=== PATIENT | male | born 1950 | race Caucasian/White ===

== ENCOUNTER 2021-06-13 12:35 | Inpatient (IN) | payer OTHER ==
[~2021-06-13] VITALS: Ht 177.8 cm; Wt 125.0 kg
[2021-06-13] VITALS (10 sets, daily range): BP systolic 105–176; BP diastolic 42–100
--- NOTE | 2021-06-13 12:55 | RAD ---
EXAM: Head CT without contrast. HISTORY: Left facial weakness. Report thalamic hemorrhage. TECHNIQUE: Computed tomographic images of the head were obtained without contrast. *One or more of the following individualized dose reduction techniques were utilized for this examina tion: 1. Automated exposure control. 2. Adjustment of the mA and/or kV according to patient size. 3. Use of iterative reconstruction technique. COMPARISON: None. FINDINGS: There is a 1.5 cm focus of hyperdensity within the right thalamus and adjacent white matter , the appearance of which favors an acute intraparenchymal hemorrhage. There is suspected minimal nik rounding edema. There is no mass effect or midline shift. There is no hydrocephalus. The abdul-white m atter differentiation pattern is intact. The orbits are unremarkable. There is mild paranasal sinus b ecause of thickening. The mastoid air cells are clear. There is no suspicious calvarial lesion. IMPRESSION: 1. Small focus of hyperdensity within the right thalamus and adjacent white matter, the appearance of which favors an acute intraparenchymal hemorrhage. 2. No additional acute intracranial finding. Findings were discussed with Dr. Eaton at 1250 hours on 06/13/2021. FOR INTERNAL CODING PURPOSES RESULT CODE: (C) Electronically signed by: Jaelyn Bravo MD (06/13/2021 12:53 PM) [id number]
[2021-06-13 13:18] LABS: BASO # 0.1 x10^3/uL (0.0-0.2); BASO % 1 % (0-3); EOS # 0.1 x10^3/uL (0.0-0.7); EOS % 1 % (0-3); HEMATOCRIT 42.7 % (39.0-53.0); HEMOGLOBIN 14.1 g/dL (13.0-17.5); LYMPH # 1.4 x10^3/uL (1.0-4.8); LYMPH % 17 % (24-48); MEAN CORPUSCULAR HEMOGLOBIN 27 pg (25-35); MEAN CORPUSCULAR HGB CONC 33 g/dL (31-37); MEAN CORPUSCULAR VOLUME 83 fL (79-100); MONO # 0.7 x10^3/uL (0.0-1.1); MONO % 9 % (0-9); NEUT # 6.2 x10^3/uL (1.8-7.7); NEUT % 73 % (31-73); PLATELET COUNT 224 x10^3/uL (140-400); RED BLOOD COUNT 5.17 x10^6/uL (4.30-5.70); RED CELL DISTRIBUTION WIDTH 15.6 % (11.5-14.5); WHITE BLOOD COUNT 8.5 x10^3/uL (4.0-11.0)
--- NOTE | 2021-06-13 13:18 | PHYS DOC ---
Past Medical History Past Surgical History: Other Additional Past Surgical Histo: unable to obtain General Adult EDM: Chief Complaint: NEURO SYMPTOMS/DEFICITS HPI: HPI: Patient is a 71 year old male with history of HTN, HLD, DM who presents via EMS from the [facility] in [place] with a hemorrhagic stroke. Witnessed onset of symptoms at 9:55 AM. Witnessed by his . He had difficulty speaking, left-sided facial droop, left sided weakness involving the leg and arm. Was taken immediately to emergency department. Was found to have a thalamic stroke. Symptoms began improving spontaneously. BP 210s/80s at outside hosp ital. Patient takes no blood thinners. He is on a daily baby aspirin. He did take 2 additional baby aspirin's this morning at the onset of symptoms. I received a call from the [place] requesting an ED to ED transfer. Given the known diagnosis and known need for ICU bed, I asked that they speak with our inpatient team for an ED to ICU transfer. The patient was then transported anyway to the ER without an accepting physician. Per EMS no blood pressure medications were given. Review of Systems: Review of Systems: Constitutional: Denies fever or chills. [] Eyes: Denies change in visual acuity. [] HENT: Denies nasal congestion or sore throat. [] Respiratory: Denies cough or shortness of breath. [] Cardiovascular: Denies chest pain or edema. [] GI: Denies abdominal pain, nausea, vomiting, bloody stools or diarrhea. [] : Denies dysuria. [] Musculoskeletal: Denies back pain or joint pain. [] Integument: Denies rash. [] Neurologic: Reports speech difficulty, left facial droop, left arm and leg weakness. Psychiatric: Denies depression or anxiety. [] Heart Score: C/O Chest Pain: No Current Medications: Current Medications Medications (Trade) Dose Ordered Sig/Yemi Start Time Stop Time Status Last Admin Dose Admin Nicardipine HCl 50 mg/Sodium Chloride 250 ml @ 25 mls/hr CONT PRN 06/13/21 12:45 06/13/21 12:59 25 MLS/HR Allergies: Allergies: Allergies Coded Allergies Type Severity Reaction Last Updated Verified No Known Drug Allergies 06/13/21 No Physical Exam: PE: Constitutional: Well developed, well nourished, no acute distress, non-toxic appearance. [] HENT: Normocephalic, atraumatic, bilateral external ears normal, oropharynx moist, no oral exudates, nose normal. [] Eyes: PERRLA, EOMI, conjunctiva normal, no discharge. [] Neck: Normal range of motion, no tenderness, supple, no stridor. [] Cardiovascular:Heart rate regular rhythm, no murmur [] Lungs & Thorax: Bilateral breath sounds clear to auscultation [] Abdomen: Bowel sounds normal, soft, no tenderness, no masses, no pulsatile masses. [] Skin: Warm, dry, no erythema, no rash. [] Back: No tenderness, no CVA tenderness. [] Extremities: No tenderness, no cyanosis, no clubbing, ROM intact, no edema. [] Neurologic: Alert and oriented to person (including age), place, time (including date, day of week, month) Follow simple commands (squeezes hands, blinks eyes) EOMI Visual noel intact Mild left-sided facial droop Left upper extremity and left lower extremity with drift but do not strike bed Right upper and lower extremity without drift Left upper extremity with mild ataxia. No ataxia in remaining extremities. No sensory deficit + Mild dysarthria No aphasia No hemineglect or inattention NIH =5 Current Patient Data: Vital Signs: Vital Signs Date Time Temp Pulse Resp B/P (MAP) Pulse Ox O2 Delivery O2 Flow Rate FiO2 06/13/21 12:54 98.5 88 16 202/92 (128) 98 Room Air 98.5 EKG: EKG: [] Radiology/Procedures: Radiology/Procedures: [] Impression: [facility] [address] [place], [place] [id number] IMAGING REPORT Signed PATIENT: VERNON BARBOUR LACCOUNT: [id number] : 1950 LOCATION: ER AGE: 71 SEX: M EXAM STATUS: PRE ER ORD. PHYSICIAN: LETY HALE MD REASON: L weak/facial droop. Reported thalamic hemorrhage from OSH. Cant confirm PROCEDURE: CT CODE STROKE HEAD WO EXAM: Head CT without contrast. HISTORY: Left facial weakness. Report thalamic hemorrhage. TECHNIQUE: Computed tomographic images of the head were obtained without contrast. *One or more of the following individualized dose reduction techniques were utilized for this examination: 1. Automated exposure control. 2. Adjustment of the mA and/or kV according to patient size. 3. Use of iterative reconstruction technique. COMPARISON: None. FINDINGS: There is a 1.5 cm focus of hyperdensity within the right thalamus and adjacent white matter, the appearance of which favors an acute intraparenchymal hemorrhage. There is suspected minimal surrounding edema. There is no mass effect or midline shift. There is no hydrocephalus. The abdul-white matter differentiation pattern is intact. The orbits are unremarkable. There is mild paranasal sinus because of thickening. The mastoid air cells are clear. There is no suspicious calvarial lesion. IMPRESSION: 1. Small focus of hyperdensity within the right thalamus and adjacent white matter, the appearance of which favors an acute intraparenchymal hemorrhage. 2. No additional acute intracranial finding. Findings were discussed with Dr. Hale at 1250 hours on 06/13/2021. FOR INTERNAL CODING PURPOSES RESULT CODE: (C) Electronically signed by: Jaelyn Huffman MD (06/13/2021 12:53 PM) [id number] DICTATED and SIGNED BY: JAELYN HUFFMAN MD DATE: 06/13/21 [id number] Course & Med Decision Making: Course & Med Decision Making Pertinent Labs and Imaging studies reviewed. (See chart for details) Patient is 71-year-old male with history of HTN, HLD, DM on daily aspirin who presents with left-sided deficits and dysarthria. LKW 9:55 AM today witnessed by . Was seen initially at the [facility] and diagnosed with a thalamic hemo rrhage. NIH on arrival is 5 Remains hypertensive, SBP 203. Nicardipine ordered. CT shows 1.5 cm R thalamic hemorrhage. Discussed with neurology, Dr. Garay, who agrees with management. Neurosurgery also consulted but is at low risk of need for NSGY intervention given location of bleed. Hold Aspirin Plan for ICU admission. [address] Disclaimer: Dragon Disclaimer: This electronic medical record was generated, in whole or in part, using a voice recognition dictation system. Departure Departure Impression: Primary Impression: Thalamic hemorrhage with stroke Additional Impression: Hypertension Disposition: 09 ADMITTED INPATIENT Admitting Physician: COREY Pickens) Condition: CRITICAL LETY HALE MD Jun 13, 2021 13:18
[2021-06-13 13:21] LABS: CALCIUM 8.6 mg/dL (8.5-10.1); CREATININE 1.6 mg/dL (0.7-1.3); GFR 42.8; POTASSIUM 4.8 mmol/L (3.5-5.1)
[2021-06-13 13:26] LABS: PROTHROMBIN TIME PATIENT 12.1 SEC (11.7-14.0)
[2021-06-13] MEDS ORDERED: oxyCODONE/APAP 5/325 1 TAB TABLET PO PRN ×2 (14:00)
[2021-06-13] MEDS ORDERED: 0.9 % SODIUM CHLORIDE 10 ML DISP.SYRIN. IV PRN (14:00)
[2021-06-13] MEDS ORDERED: CALCIUM CARBONATE 500 MG TAB.CHEW PO PRN (14:00)
[2021-06-13] MEDS ORDERED: ONDANSETRON PF 4 MG/2 ML VIAL. IVP PRN (14:00)
[2021-06-13] MEDS ORDERED: INSU100V6 SQ (16:19)
[2021-06-13] MEDS ORDERED: SIMV20TA18 PO (16:19)
[2021-06-13] MEDS ORDERED: CARB15DR3 EACHEYE (16:19)
[2021-06-13] MEDS ORDERED: LOSA100T14 PO (16:19)
[2021-06-13] MEDS ORDERED: OMEP40CA7 PO (16:19)
[2021-06-13] MEDS ORDERED: INSU100I13 SQ (16:19)
[2021-06-13] MEDS ORDERED: LEVO88TA4 PO (16:19)
[2021-06-13] MEDS ORDERED: OMEG-152 PO (16:19)
[2021-06-13] MEDS ORDERED: CHOL10004 PO (16:19)
[2021-06-13] MEDS ORDERED: CETI10TA31 PO (16:19)
[2021-06-13] MEDS ORDERED: METO-239 PO (16:19)
[2021-06-13] MEDS ORDERED: HYDR12.58 PO (16:19)
[2021-06-13] MEDS: CHOLECALCIFEROL (VITAMIN D3) 1,000 UNIT TABLET PO SCH (17:00)
[2021-06-13] MEDS: LEVOTHYROXINE 88 MCG TABLET PO SCH (17:00)
[2021-06-13] MEDS: METOPROLOL SUCC 24HR ER 25 MG TAB.ER.24H. PO SCH (17:00)
[2021-06-13] MEDS: PANTOPRAZOLE 40 MG TABLET.DR. PO SCH (17:08)
--- NOTE | 2021-06-13 17:19 | PDOC1 ---
History and Physical Date of Service: DOS: DATE: 06/13/21 TIME: 17:10 Chief Complaint: Chief Complain: neuro deficits History of Present Illness: HPI: Patient is 71-year-old white male who presented to an outside emergency room with left-sided neuro deficits. Patient reports he had just gone to the bathroom and was walking back to bed when he noticed his left leg and did not feel fully functional. He was able to get in bed and was reaching for a glass of water and noticed his left hand was tremoring notably. Shortly after developed difficulty speaking and a facial droop. Was brought to the emergency room at the [facility] was found to have a hemorrhagic thalamic stroke. Found to be notably hypertensive but no blood pressure meds given at outside hospital. When he noticed symptoms he says he did chew to aspirin. Denies any history of irregular heartbeat. Not on any home blood thinners. On presentation here symptoms were improving. By time I saw the patient there were very minimal deficits. CT head here confirmed intracranial hemorrhage. Admitted to ICU with neurology and neurosurgical consults. Past Medical/Surgical History: PMH/PSH: Hypertension, hyperlipidemia, diabetes type 2 Allergies: Allergies: Coded Allergies: No Known Drug Allergies (Unverified , 06/13/21) Family History: Family History: Hypertension Social History: Social History: Denies alcohol tobacco or drug use Current Medications: Current Medications Current Medications Nicardipine HCl 50 mg/Sodium Chloride 250 ml @ 25 mls/hr CONT PRN IV PER PROTOCOL Last administered on 06/13/21at 12:59; Start 06/13/21 at 12:45 Acetaminophen (Tylenol) 650 mg PRN Q6HRS PRN PO Headaches, Temp > 101.5'; Start 06/13/21 at 14:00 Lorazepam (Ativan) 1 mg PRN Q6HRS PRN PO ANXIETY / AGITATION; Start 06/13/21 at 14:00 Ondansetron HCl (Zofran) 4 mg PRN Q6HRS PRN IVP NAUSEA/VOMITING; Start 06/13/21 at 14:00 Calcium Carbonate/ Glycine (Tums) 500 mg PRN Q3HRS PRN PO HEARTBURN / GAS; Start 06/13/21 at 14:00 Info (Icu Electrolyte Protocol) 1 ea DAILY MC ; Start 06/14/21 at 09:00 Sodium Chloride (Normal Saline Flush) 3 ml QSHIFT PRN IV AFTER MEDS AND BLOOD DRAWS; Start 06/13/21 at 14:00 Oxycodone/ Acetaminophen (Percocet 5/325) 1 tab PRN Q4HRS PRN PO MILD PAIN, 1ST CHOICE; Start 06/13/21 at 14:00 Oxycodone/ Acetaminophen (Percocet 5/325) 2 tab PRN Q4HRS PRN PO MODERATE PAIN, SEVERE PAIN; Start 06/13/21 at 14:00 Senna/Docusate Sodium (Senna Plus) 1 tab BID PO ; Start 06/13/21 at 21:00 Vitamin D (Vitamin D3) 1,000 unit DAILY PO ; Start 06/13/21 at 17:00 Levothyroxine Sodium (Synthroid) 88 mcg DAILY06 PO ; Start 06/13/21 at 17:00 Metoprolol Succinate (Toprol Xl) 12.5 mg DAILY PO ; Start 06/13/21 at 17:00 Simvastatin (Zocor) 20 mg QHS PO ; Start 06/13/21 at 21:00 Glycerin/ Hypromellose/ Polyethylene (Artificial Tears) 1 drop QID OU ; Start 06/13/21 at 17:00 Cetirizine HCl (ZyrTEC) 10 mg HS PO ; Start 06/13/21 at 21:00 Insulin Glargine (Lantus Syringe) 70 unit DAILY SQ ; Start 06/14/21 at 09:00 Losartan Potassium (Cozaar) 100 mg DAILY PO ; Start 06/13/21 at 17:00 Pantoprazole Sodium (Protonix) 40 mg DAILYAC PO ; Start 06/13/21 at 17:30 Active Scripts Active Reported Simvastatin 20 Mg Tablet 1 Tab PO QHS Fish Oil 1,000 Mg Softgel ([place]-3/Dha/Epa/Fish Oil) 1 Each Capsule 1 Cap PO BID 30 Days Vitamin D3 (Vitamin D) 25 Mcg Tablet 50 Mcg PO DAILY 1,000 UNITS = 25 MCG Cetirizine Hcl 10 Mg Tab.chew 10 Mg PO HS Omeprazole 40 Mg Capsule.dr 1 Cap PO DAILY Metoprolol Succinate ( Xl ) (Metoprolol Succinate) 25 Mg Tab.er.24h 0.5 Tab PO DAILY Losartan Potassium 100 Mg Tablet 100 Mg PO DAILY Levothyroxine Sodium 88 Mcg Tablet 1 Tab PO DAILY Lantus Solostar (Insulin Glargine,Hum.rec.anlog) 100 Unit/1 Ml Insuln.pen 70 Unit SQ DAILY Humalog (Insulin Lispro) 100 Unit/1 Ml Vial 100 Unit SQ TID Hydrochlorothiazide Tablet (Hydrochlorothiazide) 12.5 Mg Tablet 12.5 Mg PO DAILY Refresh Optive Eye Drops (Carboxymethylcellulos/Glycerin) 15 Ml Drops 1 Drop EACHEYE QID ROS: Review of Systems Review of System Unless noted in HPI 14 point review of systems is negative Physical Exam: Vital Signs: Vital Signs Date Time Temp Pulse Resp B/P (MAP) Pulse Ox O2 Delivery O2 Flow Rate FiO2 06/13/21 16:22 Nasal Cannula 2.0 06/13/21 16:00 69 27 176/76 (109) 97 06/13/21 15:47 98.8 98.8 Physcial Exam: GEN: No apparent distress. Alert and oriented HEENT: Normal cephalic, atraumatic, external auditory canals are patent EYES: Extraocular muscles are intact, pupil are equally round and reactive to light and accommodation MUSCULOSKELETAL: Well developed , well nourished, good range of motion ENDOCRINE: No thyromegaly was palpated LYMPHATICS: No cervical chain or axillary nodes were noted HEMATOPOIETIC: No bruising NECK: Supple, no JVD, no thyromegaly was noted LUNGS: Clear to auscultation in all lung noel without rhonchi or wheezing HEART: RRR, S1, S2 present. Peripheral pulses intact, no obvious murmurs noted ABDOMEN: Soft, nontender. Positive bowel sounds, no organomegaly, normal bowel sounds EXTREMITIES: Without clubbing, cyanosis, or edema. Pedal pulses intact. 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 Normal throughout entire right side. No apparent cranial nerve deficits. PSYCHIATRIC: Normal affect, normal mood. Stable SKIN: No ulcerations or rashes, good skin turgor, no jaundice VASCULAR: Good capillary refill, neurovascular bundle appears to be intact Labs: Labs: Laboratory Tests Test 06/13/21 13:00 White Blood Count 8.5 x10^3/uL (4.0-11.0) Red Blood Count 5.17 x10^6/uL (4.30-5.70) Hemoglobin 14.1 g/dL (13.0-17.5) Hematocrit 42.7 % (39.0-53.0) Mean Corpuscular Volume 83 fL (79-100) Mean Corpuscular Hemoglobin 27 pg (25-35) Mean Corpuscular Hemoglobin Concent 33 g/dL (31-37) Red Cell Distribution Width 15.6 % (11.5-14.5) Platelet Count 224 x10^3/uL (140-400) Neutrophils (%) (Auto) 73 % (31-73) Lymphocytes (%) (Auto) 17 % (24-48) Monocytes (%) (Auto) 9 % (0-9) Eosinophils (%) (Auto) 1 % (0-3) Basophils (%) (Auto) 1 % (0-3) Neutrophils # (Auto) 6.2 x10^3/uL (1.8-7.7) Lymphocytes # (Auto) 1.4 x10^3/uL (1.0-4.8) Monocytes # (Auto) 0.7 x10^3/uL (0.0-1.1) Eosinophils # (Auto) 0.1 x10^3/uL (0.0-0.7) Basophils # (Auto) 0.1 x10^3/uL (0.0-0.2) Prothrombin Time 12.1 SEC (11.7-14.0) Prothromb Time International Ratio 0.9 (0.8-1.1) Activated Partial Thromboplast Time 24 SEC (24-38) Sodium Level 138 mmol/L (136-145) Potassium Level 4.8 mmol/L (3.5-5.1) Chloride Level 102 mmol/L (98-107) Carbon Dioxide Level 26 mmol/L (21-32) Anion Gap 10 (6-14) Blood Urea Nitrogen 29 mg/dL (8-26) Creatinine 1.6 mg/dL (0.7-1.3) Estimated GFR (Cockcroft-Gault) 42.8 Glucose Level 172 mg/dL (70-99) Calcium Level 8.6 mg/dL (8.5-10.1) Troponin I High Sensitivity 31 ng/L (4-75) Laboratory Tests Test 06/13/21 13:00 White Blood Count 8.5 x10^3/uL (4.0-11.0) Red Blood Count 5.17 x10^6/uL (4.30-5.70) Hemoglobin 14.1 g/dL (13.0-17.5) Hematocrit 42.7 % (39.0-53.0) Mean Corpuscular Volume 83 fL (79-100) Mean Corpuscular Hemoglobin 27 pg (25-35) Mean Corpuscular Hemoglobin Concent 33 g/dL (31-37) Red Cell Distribution Width 15.6 % (11.5-14.5) Platelet Count 224 x10^3/uL (140-400) Neutrophils (%) (Auto) 73 % (31-73) Lymphocytes (%) (Auto) 17 % (24-48) Monocytes (%) (Auto) 9 % (0-9) Eosinophils (%) (Auto) 1 % (0-3) Basophils (%) (Auto) 1 % (0-3) Neutrophils # (Auto) 6.2 x10^3/uL (1.8-7.7) Lymphocytes # (Auto) 1.4 x10^3/uL (1.0-4.8) Monocytes # (Auto) 0.7 x10^3/uL (0.0-1.1) Eosinophils # (Auto) 0.1 x10^3/uL (0.0-0.7) Basophils # (Auto) 0.1 x10^3/uL (0.0-0.2) Prothrombin Time 12.1 SEC (11.7-14.0) Prothromb Time International Ratio 0.9 (0.8-1.1) Activated Partial Thromboplast Time 24 SEC (24-38) Sodium Level 138 mmol/L (136-145) Potassium Level 4.8 mmol/L (3.5-5.1) Chloride Level 102 mmol/L (98-107) Carbon Dioxide Level 26 mmol/L (21-32) Anion Gap 10 (6-14) Blood Urea Nitrogen 29 mg/dL (8-26) Creatinine 1.6 mg/dL (0.7-1.3) Estimated GFR (Cockcroft-Gault) 42.8 Glucose Level 172 mg/dL (70-99) Calcium Level 8.6 mg/dL (8.5-10.1) Troponin I High Sensitivity 31 ng/L (4-75) Assessment/Plan Assessment/Plan Thalamic hemorrhagic stroke, hypertensive urgency. History hypertension hyperlipidemia type 2 diabetes -Patient presents today with neurological deficits. Hemorrhagic stroke on outside imaging. Confirmed here. -Notably hypertensive at outside hospital no meds given. Started on Cardene drip here with good improvement blood pressure -Continue blood pressure control overnight. Home meds restarted. Wean Cardene drip as needed. -Consult to neurology and neurosurgery -May need MRI brain await neurological consult -We will go ahead and order echo with bubble study -Home meds resumed as indicated -N.p.o. for now. If deemed safe can go ahead with diabetic diet -DVT prophylaxis 55 minutes critical care time Justifications for Admission Other Justification KING HEDRICK MD Jun 13, 2021 17:19
[2021-06-13] MEDS: ACETAMINOPHEN 325 MG TABLET. PO PRN ×2 (17:22→22:29)
[2021-06-13] MEDS: LOSARTAN POTASSIUM 50 MG TABLET. PO SCH (17:22)
[2021-06-13] MEDS: POLYVINYL ALCOHOL 1.4% OPHTH SOLUTION 15ML BOTTLE. OU SCH ×2 (17:22→20:45)
--- NOTE | 2021-06-13 19:49 | EKG ---
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
--- NOTE | 2021-06-13 20:03 | PDOC2 ---
CONSULT Date of Consult Date of Consult Neurology Consultation DATE: 06/13/21 TIME: 19:49 Reason for Consult Reason for Consult: Right thalamic hemorrhage Referring Physician Referring Physician: Dr. Lucio Atwood History of Present Illness Reason for Visit: Carlos Pratt is a pleasant 71-year-old man who developed neurologic symptoms this morning at 9:50 AM. He was turning to get out of the bathroom when suddenly his left side became weak. He started to fall but he was able to catch himself. The bed was nearby so he is able to get into his bed. He developed difficulty with slurred speech and left facial drooping. He was taken to the emergency room at [facility] and was found to have thalamic hemorrhage. By the time he arrived at [facility] emergency room some of his symptoms were improving. His blood pressure was quite elevated and a Cardene drip was started in the emergency room and he was transferred to the intensive care unit. He does not complain of any headache. He feels his speech is much better. He is not complaining of any numbness. He has been able to talk, chew and swallow. He has not had shortness of breath. He denies any palpitations. Past Medical History Cardiovascular: HTN, Hyperlipidemia Endocrine: Diabetes (Insulin-dependent) Social History No ALCOHOL: none Lives: with Family Current Problem List Problem List Problems Medical Problems: (1) Hypertension Status: Acute (2) Thalamic hemorrhage with stroke Status: Acute Current Medications Current Medications Current Medications Nicardipine HCl 50 mg/Sodium Chloride 250 ml @ 25 mls/hr CONT PRN IV PER PROTOCOL Last administered on 06/13/21at 19:46; Start 06/13/21 at 12:45 Acetaminophen (Tylenol) 650 mg PRN Q6HRS PRN PO Headaches, Temp > 101.5' Last administered on 06/13/21at 17:22; Start 06/13/21 at 14:00 Lorazepam (Ativan) 1 mg PRN Q6HRS PRN PO ANXIETY / AGITATION; Start 06/13/21 at 14:00 Ondansetron HCl (Zofran) 4 mg PRN Q6HRS PRN IVP NAUSEA/VOMITING; Start 06/13/21 at 14:00 Calcium Carbonate/ Glycine (Tums) 500 mg PRN Q3HRS PRN PO HEARTBURN / GAS; Start 06/13/21 at 14:00 Info (Icu Electrolyte Protocol) 1 ea DAILY MC ; Start 06/14/21 at 09:00 Sodium Chloride (Normal Saline Flush) 3 ml QSHIFT PRN IV AFTER MEDS AND BLOOD DRAWS; Start 06/13/21 at 14:00 Oxycodone/ Acetaminophen (Percocet 5/325) 1 tab PRN Q4HRS PRN PO MILD PAIN, 1ST CHOICE; Start 06/13/21 at 14:00 Oxycodone/ Acetaminophen (Percocet 5/325) 2 tab PRN Q4HRS PRN PO MODERATE PAIN, SEVERE PAIN; Start 06/13/21 at 14:00 Senna/Docusate Sodium (Senna Plus) 1 tab BID PO ; Start 06/13/21 at 21:00 Vitamin D (Vitamin D3) 1,000 unit DAILY PO ; Start 06/13/21 at 17:00 Levothyroxine Sodium (Synthroid) 88 mcg DAILY06 PO ; Start 06/13/21 at 17:00 Metoprolol Succinate (Toprol Xl) 12.5 mg DAILY PO ; Start 06/13/21 at 17:00 Simvastatin (Zocor) 20 mg QHS PO ; Start 06/13/21 at 21:00 Glycerin/ Hypromellose/ Polyethylene (Artificial Tears) 1 drop QID OU Last administered on 06/13/21at 17:22; Start 06/13/21 at 17:00 Cetirizine HCl (ZyrTEC) 10 mg HS PO ; Start 06/13/21 at 21:00 Insulin Glargine (Lantus Syringe) 70 unit DAILY SQ ; Start 06/14/21 at 09:00 Losartan Potassium (Cozaar) 100 mg DAILY PO Last administered on 06/13/21at 17:22; Start 06/13/21 at 17:00 Pantoprazole Sodium (Protonix) 40 mg DAILYAC PO ; Start 06/13/21 at 17:30 Active Scripts Active Reported Simvastatin 20 Mg Tablet 1 Tab PO QHS Fish Oil 1,000 Mg Softgel ([place]-3/Dha/Epa/Fish Oil) 1 Each Capsule 1 Cap PO BID 30 Days Vitamin D3 (Vitamin D) 25 Mcg Tablet 50 Mcg PO DAILY 1,000 UNITS = 25 MCG Cetirizine Hcl 10 Mg Tab.chew 10 Mg PO HS Omeprazole 40 Mg Capsule.dr 1 Cap PO DAILY Metoprolol Succinate ( Xl ) (Metoprolol Succinate) 25 Mg Tab.er.24h 0.5 Tab PO DAILY Losartan Potassium 100 Mg Tablet 100 Mg PO DAILY Levothyroxine Sodium 88 Mcg Tablet 1 Tab PO DAILY Lantus Solostar (Insulin Glargine,Hum.rec.anlog) 100 Unit/1 Ml Insuln.pen 70 Unit SQ DAILY Humalog (Insulin Lispro) 100 Unit/1 Ml Vial 100 Unit SQ TID Hydrochlorothiazide Tablet (Hydrochlorothiazide) 12.5 Mg Tablet 12.5 Mg PO DAILY Refresh Optive Eye Drops (Carboxymethylcellulos/Glycerin) 15 Ml Drops 1 Drop EACHEYE QID Allergies Allergies: Coded Allergies: No Known Drug Allergies (Unverified , 06/13/21) ROS Review of System Constitutional: Negative Eyes: Negative HENT: Negative Respiratory: Negative Cardiovascular: He has high blood pressure. GI: Negative : Negative Musculoskeletal: Negative Neurologic: He developed left leg weakness and difficulty walking. He developed numbness of his left face. He had left facial drooping. Hematologic: Negative Lymphatic: Negative Psychiatric: Negative Endocrine: He has insulin-dependent diabetes. He has hyperlipidemia. Physical Exam Physical Exam He was alert, awake and cooperative. The speech was fluent and clear. He had a good fund of recent and remote knowledge. Attention and concentration was intact. He was well-groomed and well-nourished. He was fully oriented. Examination of the cranial nerves revealed visual noel were full to confrontation. Extraocular movements were intact. The eyes were conjugate. Pursuit movements were smooth and saccadic movements were without dysmetria. The pupils were 3 millimeters and reacted to light. There was no afferent pupillary defect. Funduscopic examination did not reveal papilledema, exudate or hemorrhage. Facial sensation was intact. The muscles of mastication were powerful symmetrically. He did not have a left facial droop but did have delay of initiation of left smile. He did not have delay in eye opening or closing. Hearing was intact to finger rub. The palate arch symmetrically and the tongue was midline with full range of motion. Sternocleidomastoid and trapezius were powerful bilaterally. Muscle bulk and tone was normal. He had rebound in the left arm and leg when held in the air. There was no arm drift. The power was full and symmetric in the upper and lower extremities. Reflexes were 2/4 and symmetric in the upper and lower extremities. The toes were downgoing bilaterally. Coordination testing with finger to nose, heel to kearns, fine motor and rapid alternating movements was well performed on the right. He had impairment with oplilu-al-jzby, fine motor, rapid alternating movements and taeu-hi-wgmw on the left. The sensory examination was intact to pain, light touch, proprioception, graphesthesia, cold thermal and vibration. There was no extinction to double simultaneous stimulation. The gait was not testable due to his elevated blood pressure requiring a Cardene drip. Auscultation of the carotid arteries did not reveal a bruit. Heart rhythm was regular without a murmur. Peripheral pulses are 2/4 at the wrists and feet. There was no edema or cyanosis of the extremities. Vitals VITALS Vital Signs Date Time Temp Pulse Resp B/P (MAP) Pulse Ox O2 Delivery O2 Flow Rate FiO2 06/13/21 18:00 82 19 158/70 (99) 93 Nasal Cannula 2.0 06/13/21 15:47 98.8 98.8 Labs Labs Laboratory Tests Test 06/13/21 13:00 White Blood Count 8.5 x10^3/uL (4.0-11.0) Red Blood Count 5.17 x10^6/uL (4.30-5.70) Hemoglobin 14.1 g/dL (13.0-17.5) Hematocrit 42.7 % (39.0-53.0) Mean Corpuscular Volume 83 fL (79-100) Mean Corpuscular Hemoglobin 27 pg (25-35) Mean Corpuscular Hemoglobin Concent 33 g/dL (31-37) Red Cell Distribution Width 15.6 % (11.5-14.5) Platelet Count 224 x10^3/uL (140-400) Neutrophils (%) (Auto) 73 % (31-73) Lymphocytes (%) (Auto) 17 % (24-48) Monocytes (%) (Auto) 9 % (0-9) Eosinophils (%) (Auto) 1 % (0-3) Basophils (%) (Auto) 1 % (0-3) Neutrophils # (Auto) 6.2 x10^3/uL (1.8-7.7) Lymphocytes # (Auto) 1.4 x10^3/uL (1.0-4.8) Monocytes # (Auto) 0.7 x10^3/uL (0.0-1.1) Eosinophils # (Auto) 0.1 x10^3/uL (0.0-0.7) Basophils # (Auto) 0.1 x10^3/uL (0.0-0.2) Prothrombin Time 12.1 SEC (11.7-14.0) Prothromb Time International Ratio 0.9 (0.8-1.1) Activated Partial Thromboplast Time 24 SEC (24-38) Sodium Level 138 mmol/L (136-145) Potassium Level 4.8 mmol/L (3.5-5.1) Chloride Level 102 mmol/L (98-107) Carbon Dioxide Level 26 mmol/L (21-32) Anion Gap 10 (6-14) Blood Urea Nitrogen 29 mg/dL (8-26) Creatinine 1.6 mg/dL (0.7-1.3) Estimated GFR (Cockcroft-Gault) 42.8 Glucose Level 172 mg/dL (70-99) Calcium Level 8.6 mg/dL (8.5-10.1) Troponin I High Sensitivity 31 ng/L (4-75) Laboratory Tests Test 06/13/21 13:00 White Blood Count 8.5 x10^3/uL (4.0-11.0) Red Blood Count 5.17 x10^6/uL (4.30-5.70) Hemoglobin 14.1 g/dL (13.0-17.5) Hematocrit 42.7 % (39.0-53.0) Mean Corpuscular Volume 83 fL (79-100) Mean Corpuscular Hemoglobin 27 pg (25-35) Mean Corpuscular Hemoglobin Concent 33 g/dL (31-37) Red Cell Distribution Width 15.6 % (11.5-14.5) Platelet Count 224 x10^3/uL (140-400) Neutrophils (%) (Auto) 73 % (31-73) Lymphocytes (%) (Auto) 17 % (24-48) Monocytes (%) (Auto) 9 % (0-9) Eosinophils (%) (Auto) 1 % (0-3) Basophils (%) (Auto) 1 % (0-3) Neutrophils # (Auto) 6.2 x10^3/uL (1.8-7.7) Lymphocytes # (Auto) 1.4 x10^3/uL (1.0-4.8) Monocytes # (Auto) 0.7 x10^3/uL (0.0-1.1) Eosinophils # (Auto) 0.1 x10^3/uL (0.0-0.7) Basophils # (Auto) 0.1 x10^3/uL (0.0-0.2) Prothrombin Time 12.1 SEC (11.7-14.0) Prothromb Time International Ratio 0.9 (0.8-1.1) Activated Partial Thromboplast Time 24 SEC (24-38) Sodium Level 138 mmol/L (136-145) Potassium Level 4.8 mmol/L (3.5-5.1) Chloride Level 102 mmol/L (98-107) Carbon Dioxide Level 26 mmol/L (21-32) Anion Gap 10 (6-14) Blood Urea Nitrogen 29 mg/dL (8-26) Creatinine 1.6 mg/dL (0.7-1.3) Estimated GFR (Cockcroft-Gault) 42.8 Glucose Level 172 mg/dL (70-99) Calcium Level 8.6 mg/dL (8.5-10.1) Troponin I High Sensitivity 31 ng/L (4-75) Images Images CT head without contrast June 13, 2021 COMPARISON: None. FINDINGS: There is a 1.5 cm focus of hyperdensity within the right thalamus and adjacent white matter, the appearance of which favors an acute intraparenchymal hemorrhage. There is suspected minimal surrounding edema. There is no mass effect or midline shift. There is no hydrocephalus. The abdul-white matter differentiation pattern is intact. The orbits are unremarkable. There is mild paranasal sinus because of thickening. The mastoid air cells are clear. There is no suspicious calvarial lesion. IMPRESSION: 1. Small focus of hyperdensity within the right thalamus and adjacent white matter, the appearance of which favors an acute intraparenchymal hemorrhage. 2. No additional acute intracranial finding. Assessment/Plan Assessment/Plan Patient is a pleasant 71-year-old man who developed neurologic symptoms this morning affecting his left side. CT scan of the head did reveal a right thalamic stroke which was small. No other hemorrhages or stroke is seen. His neurologic examination does reveal some deficit with delay of initiation of left smile and ataxia of the left arm and leg. His strength and sensation is impaired. We can test his walking when his blood pressure control is better. Would like to keep the blood pressure below 150 systolic. We will follow up with a CT scan of the head on June 14, 2021 to make sure hemorrhage is stable and not increasing. This is not a surgically addressable lesion. Prognosis for recovery is favorable. Aspirin should be held for 10-14 days. Blood pressure control is of paramount importance. Lipid control is also important. High doses of fish oil can however increase the risk of bleeding. Pneumatic compression stockings have been ordered. He will need to work with all the therapies. Control of diabetes is also of high importance as this is a vascular risk factor. Weight loss will be important as well. I will be happy to reevaluate. GABI CAMPBELL MD Jun 13, 2021 20:02
[2021-06-13] MEDS: CETIRIZINE HCL 10 MG TABLET. PO SCH (20:44)
[2021-06-13] MEDS: SIMVASTATIN 20 MG TABLET PO SCH (20:44)
[2021-06-13] MEDS: SENNOSIDES/DOCUSATE 8.6/50MG TABLET. PO SCH (20:44)
[2021-06-14] VITALS (24 sets, daily range): BP systolic 108–196; BP diastolic 42–100
--- NOTE | 2021-06-14 00:30 | NUR ---
PT DOES NOT WEAR HOME CPAP AND IS NOT INTERESTED IN WEARING BIPAP IN HOSPITAL,PER RN. BIPAP NOT INITIATED, WILL CONTINUE TO MONITOR
[2021-06-14] MEDS: ACETAMINOPHEN 325 MG TABLET. PO PRN ×5 (05:28→21:16)
[2021-06-14] MEDS: LEVOTHYROXINE 88 MCG TABLET PO SCH (05:28)
[2021-06-14] MEDS: CHOLECALCIFEROL (VITAMIN D3) 1,000 UNIT TABLET PO SCH (07:41)
[2021-06-14] MEDS: SENNOSIDES/DOCUSATE 8.6/50MG TABLET. PO SCH ×2 (07:41→20:54)
[2021-06-14] MEDS: METOPROLOL SUCC 24HR ER 25 MG TAB.ER.24H. PO SCH (07:41)
[2021-06-14] MEDS: LOSARTAN POTASSIUM 50 MG TABLET. PO SCH (07:42)
[2021-06-14] MEDS: PANTOPRAZOLE 40 MG TABLET.DR. PO SCH (07:42)
[2021-06-14] MEDS: POLYVINYL ALCOHOL 1.4% OPHTH SOLUTION 15ML BOTTLE. OU SCH ×4 (07:42→20:55)
[2021-06-14] MEDS ORDERED: IV DEXTROSE 5% 250 ML BAG. IV PRN (08:15)
[2021-06-14] MEDS ORDERED: DEXTROSE 50% 25 GM / 50ML DISP.SYRIN. IV PRN (08:15)
[2021-06-14] MEDS: ELECTROLYTE (ICU) PROTOCOL. MC SCH (09:00)
[2021-06-14] MEDS: INSULIN GLARGINE SYRINGE. SQ SCH (09:00)
--- NOTE | 2021-06-14 10:38 | RAD ---
CT HEAD WITHOUT CONTRAST 06/14/2021 9:58 AM Indication: Reason: check status of hemmhorage / Comparison: CT head without contrast, yesterday Procedure: Multidetector CT imaging of the head was performed without the administration of contrast. Findings: Allowing for differences in slice selection/technique there is grossly unchanged appearance of small focus of hyperdensity in the right basal ganglia concerning for small acute parenchymal hem orrhage. No new mass effect or midline shift is seen. Ventricles and basilar cisterns have stable nor mal configuration. No new abnormal extra-axial fluid collections are identified. No acute osseous yonny nges are seen. Impression: Grossly unchanged exam with small focus of hypodensity in the right basal ganglia felt to most likely represent a small intraparenchymal hemorrhage. CT follow-up to ensure resolution is tyler mmended. If lesion fails to resolve, contrast-enhanced MRI recommended. CT DOSING PQRS STATEMENT: One or more of the following individualized dose reduction techniques were utilized for this examinat ion: 1. Automated exposure control 2. Adjustment of the mA and/or kV according to patient size 3. Use of iterative reconstruction technique Electronically signed by: Miguel Jasso MD (06/14/2021 10:35 AM) [id number]
[2021-06-14] MEDS ORDERED: hydrALAZINE 25 MG TABLET PO SCH ×2 (11:00→14:00)
[2021-06-14] MEDS ORDERED: cloNIDine TTS-1 1 PATCH PATCH.TDWK TD SCH (11:00)
--- NOTE | 2021-06-14 11:09 | PDOC ---
[employer] PROGRESS NOTE Date of Service DOS: DATE: 06/14/21 TIME: 11:07 Chief Complaint Chief Complaint Thalamic hemorrhagic stroke Hypertensive urgency Hyperlipidemia Diabetes History of Present Illness History of Present Illness 06/14/2021 Patient still in ICU Visiting with his family Chart reviewed discussed with RN Vitals/I&O Vitals/I&O: Vital Signs Date Time Temp Pulse Resp B/P (MAP) Pulse Ox O2 Delivery O2 Flow Rate FiO2 06/14/21 10:34 88 176/85 06/14/21 10:00 18 95 Room Air 06/14/21 08:00 98.5 98.5 06/14/21 06:00 2.0 I & O 06/13/21 06/13/21 06/14/21 15:00 23:00 07:00 Intake Total 100 ml 100 ml Output Total 400 ml 500 ml 350 ml Balance -400 ml -400 ml -250 ml Physical Exam General: Alert Heart: Regular rate Labs Labs: Laboratory Tests Test 06/13/21 13:00 06/13/21 20:47 06/14/21 08:02 White Blood Count 8.5 x10^3/uL (4.0-11.0) Red Blood Count 5.17 x10^6/uL (4.30-5.70) Hemoglobin 14.1 g/dL (13.0-17.5) Hematocrit 42.7 % (39.0-53.0) Mean Corpuscular Volume 83 fL (79-100) Mean Corpuscular Hemoglobin 27 pg (25-35) Mean Corpuscular Hemoglobin Concent 33 g/dL (31-37) Red Cell Distribution Width 15.6 % (11.5-14.5) Platelet Count 224 x10^3/uL (140-400) Neutrophils (%) (Auto) 73 % (31-73) Lymphocytes (%) (Auto) 17 % (24-48) Monocytes (%) (Auto) 9 % (0-9) Eosinophils (%) (Auto) 1 % (0-3) Basophils (%) (Auto) 1 % (0-3) Neutrophils # (Auto) 6.2 x10^3/uL (1.8-7.7) Lymphocytes # (Auto) 1.4 x10^3/uL (1.0-4.8) Monocytes # (Auto) 0.7 x10^3/uL (0.0-1.1) Eosinophils # (Auto) 0.1 x10^3/uL (0.0-0.7) Basophils # (Auto) 0.1 x10^3/uL (0.0-0.2) Prothrombin Time 12.1 SEC (11.7-14.0) Prothromb Time International Ratio 0.9 (0.8-1.1) Activated Partial Thromboplast Time 24 SEC (24-38) Sodium Level 138 mmol/L (136-145) Potassium Level 4.8 mmol/L (3.5-5.1) Chloride Level 102 mmol/L (98-107) Carbon Dioxide Level 26 mmol/L (21-32) Anion Gap 10 (6-14) Blood Urea Nitrogen 29 mg/dL (8-26) Creatinine 1.6 mg/dL (0.7-1.3) Estimated GFR (Cockcroft-Gault) 42.8 Glucose Level 172 mg/dL (70-99) Calcium Level 8.6 mg/dL (8.5-10.1) Troponin I High Sensitivity 31 ng/L (4-75) Glucose (Fingerstick) 171 mg/dL (70-99) 255 mg/dL (70-99) Assessment and Plan Assessmemt and Plan Problems Medical Problems: (1) Hypertension Status: Acute (2) Thalamic hemorrhage with stroke Status: Acute Thalamic hemorrhagic stroke Hypertensive urgency Hyperlipidemia Diabetes Plan ICU monitoring Neurosurgery following I discussed with the nurse and pharmacy were adding in hydralazine 25 p.o. 3 times daily Home meds DVT prophylaxis Full code Trend labs PT OT Appreciate subspecialist input Comment Review of Relevant I have reviewed the following items tarsha (where applicable) has been applied. Medications: Current Medications Medications (Trade) Dose Ordered Sig/Yemi Route PRN Reason Start Time Stop Time Status Last Admin Dose Admin Nicardipine HCl 50 mg/Sodium Chloride 250 ml @ 25 mls/hr CONT PRN IV PER PROTOCOL 06/13/21 12:45 06/13/21 19:46 Acetaminophen (Tylenol) 650 mg PRN Q6HRS PRN PO Headaches, Temp > 101.5' 06/13/21 14:00 06/14/21 05:28 Senna/Docusate Sodium (Senna Plus) 1 tab BID PO 06/13/21 21:00 06/14/21 07:41 Vitamin D (Vitamin D3) 1,000 unit DAILY PO 06/13/21 17:00 06/14/21 07:41 Levothyroxine Sodium (Synthroid) 88 mcg DAILY06 PO 06/13/21 17:00 06/14/21 05:28 Metoprolol Succinate (Toprol Xl) 12.5 mg DAILY PO 06/13/21 17:00 06/14/21 07:41 Simvastatin (Zocor) 20 mg QHS PO 06/13/21 21:00 06/13/21 20:44 Glycerin/ Hypromellose/ Polyethylene (Artificial Tears) 1 drop QID OU 06/13/21 17:00 06/13/21 20:45 Cetirizine HCl (ZyrTEC) 10 mg HS PO 06/13/21 21:00 06/13/21 20:44 Insulin Glargine (Lantus Syringe) 70 unit DAILY SQ 06/14/21 09:00 06/14/21 09:00 Losartan Potassium (Cozaar) 100 mg DAILY PO 06/13/21 17:00 06/14/21 07:42 Pantoprazole Sodium (Protonix) 40 mg DAILYAC PO 06/13/21 17:30 06/14/21 07:42 Clonidine HCl (Catapres Tts-1) 1 patch WEEKLY TD 06/14/21 11:00 06/14/21 10:34 Hydralazine HCl (Apresoline) 25 mg TID PO 06/14/21 11:00 06/14/21 10:34 Justifications for Admission Other Justification ALIZE HOOD III DO Jun 14, 2021 11:09
[2021-06-14] MEDS ORDERED: hydrALAZINE 20 MG/ML VIAL. IVP PRN (11:45)
[2021-06-14] MEDS: LABETALOL HCL 100 MG TABLET. PO SCH ×2 (12:37→20:55)
[2021-06-14] MEDS: INSULIN LISPRO 300 UNITS/3 ML VIAL. SQ SCH ×4 (12:42→17:44)
--- NOTE | 2021-06-14 13:39 | PDOC ---
Provider Note Date of Service: DATE: 06/14/21 TIME: 13:37 Provider Note Patient seen and examined consulted for thalamic hemorrhage no complaints, up in chair normal neuro exam CT with small focus of hypodensity in the right basal ganglia felt to most likely represent a small intraparenchymal hemorrhage, unchanged on f/u CT neurology following BP control D/W RN Justifications for Admission Other Justification RACHEL MEDEIROS MD Jun 14, 2021 13:39
--- NOTE | 2021-06-14 16:04 | NUR ---
SS following for discharge planning. SS reviewed pt chart and discussed with pt RN. Pt is from home with spouse and is currently on room air. Neurology and Dr. Clemens following. PO diet. PT/OT recommended home with outpatient. SS will continue to follow for discharge planning.
[2021-06-14] MEDS: ALPRAZolam 0.5 MG TABLET PO PRN ×2 (16:06→20:54)
--- NOTE | 2021-06-14 16:58 | RAD ---
EXAM: Carotid Doppler sonogram. HISTORY: Stroke. Atherosclerosis. TECHNIQUE: Boggs scale and color Doppler sonographic evaluation of the neck with spectral waveform dustin lysis was performed and static images are submitted for review. FINDINGS: There is atherosclerotic plaque involving the carotid bifurcations. The peak systolic velocity within the right common carotid artery is 136 cm/sec. The peak systolic ve locity within the right internal carotid artery is 158 cm/sec and the end diastolic velocity within t he right internal carotid artery is 19 cm/sec. The right ICA/CCA ratio is 1.3. The peak systolic velocity within the left common carotid artery is 143 cm/sec. The peak systolic elisabeth ocity within the left internal carotid artery is 116 cm/sec and the end diastolic velocity within the left internal carotid artery is 17 cm/sec. The left ICA/CCA ratio is 0.81. There is normal antegrade flow within both vertebral arteries. There are elevated peak systolic veloc ities within the external carotid arteries, measuring 317 cm/s on the right and 393 cm/s on the left. IMPRESSION: 1. Doppler findings consistent with 50-69 percent stenosis involving the right ICA and less than 50 p ercent stenosis involving the left ICA. 2. Doppler findings consistent with hemodynamically significant stenosis involving the left greater t hernandez right external carotid arteries. PQRS Compliance Statement - Stenosis calculations for CT, MR and conventional angiography are based u bobbi measurement of the distal ICA diameter in accordance with the NASCET methodology. Stenosis calcu lations for carotid ultrasound studies are derived from validated velocity criteria which are known t o correlate with the NASCET methodology. Electronically signed by: Jaelyn Bravo MD (06/14/2021 4:55 PM) [id number]
--- NOTE | 2021-06-14 17:42 | CARD ---
MR#: [id number] Date of Study: 06/14/2021 Ordering Physician: KING HEDRICK, Referring Physician: KING HEDRICK, Anali: Carlos King [facility] APPROVED REPORT EXAM: Two-dimensional and M-mode echocardiogram with Doppler and color Doppler. Other Information Quality : FairHR: 76bpm Rhythm : NSRTechnically limited study due to body habitus. INDICATION CVA/TIA Echo Enhancing Agent Agent/Amount Used: Agitated Saline 8mL RISK FACTORS Hypertension Obesity Diabetes 2D DIMENSIONS Left Atrium(2D)4.6 (1.6-4.0cm)IVSd1.4 (0.7-1.1cm) Aortic Root(2D)3.3 (2.0-3.7cm)LVDd5.5 (3.9-5.9cm) LVOT Diameter2.0 (1.8-2.4cm)PWd1.4 (0.7-1.1cm) LVDs3.1 (2.5-4.0cm)FS (%) 42.9 % SV106.1 mlLVEF(%)73.2 (>50%) Aortic Valve AoV Peak Danielito.170.2cm/sAoV VTI37.9cm AO Peak GR.11.6mmHgLVOT VTI 17.43cm AO Mean GR.8mmHg Mitral Valve MV E Mguboygi95.4cm/sMV E Peak Gr.10mmHg MV DECEL [id number] A Hswerbpt071.4cm/s MV E Mean Gr.5mmHgE/A Ratio0.7 TDI Lateral E' P. V7.14cm/sMedial E' P. V7.08cm/s E/Lateral E'12.8E/Medial E'12.9 Tricuspid Valve TR P. [id number]/sTR Peak Gr.29mmHg LEFT VENTRICLE The left ventricle is normal size. There is moderate concentric left ventricular hypertrophy. The lef t ventricular systolic function is normal. The ejection fraction is estimated at 55-60%. There is nor mal LV segmental wall motion. Transmitral Doppler flow pattern is Grade I-abnormal relaxation pattern . No left ventricle thrombus noted on this study. There is no ventricular septal defect visualized. T here is no left ventricular aneurysm. There is no mass noted in the left ventricle. RIGHT VENTRICLE The right ventricle is normal size. There is normal right ventricular wall thickness. The right ventr icular systolic function is normal. ATRIA The left atrium is mildly dilated. The right atrium size is normal. The interatrial septum is intact with no evidence for an atrial septal defect or patent foramen ovale as noted on 2-D, Doppler or sali ne contrast imaging. AORTIC VALVE The aortic valve is calcified but opens well. Doppler and Color Flow revealed no significant aortic r egurgitation. There is no significant aortic valvular stenosis. Calculated aortic valve area is 1.4 c m2 with maximum pressure gradient of 12 mmHg and mean pressure gradient of 7 mmHg. There is no aortic valvular vegetation. MITRAL VALVE The mitral valve is normal in structure and function. There is no evidence of mitral valve prolapse. There is no mitral valve stenosis. Doppler and Color Flow revealed no mitral valve regurgitation note d. TRICUSPID VALVE The tricuspid valve is normal in structure and function. Doppler and Color Flow revealed trace tricus pid regurgitation. The PA pressure was estimated at 37 mmHg. There is no tricuspid valve prolapse or vegetation. There is no tricuspid valve stenosis. PULMONIC VALVE The pulmonic valve is not well seen. Doppler and Color Flow revealed no pulmonic valvular regurgitati on. There is no pulmonic valvular stenosis. GREAT VESSELS The aortic root is normal in size. The ascending aorta is not well seen. The pulmonary artery is norm al. The IVC is not well seen. Difficult subcostal imaging. PERICARDIAL EFFUSION There is no pleural effusion. There is no evidence of significant pericardial effusion. Critical Notification Critical Value: No <Conclusion> Technically very difficult study. The left ventricular systolic function is normal. The ejection fraction is estimated at 55-60%. There is normal LV segmental wall motion. Transmitral Doppler flow pattern is Grade I-abnormal relaxation pattern. Trace tricuspid regurgitation. The PA pressure was estimated at 37 mmHg. There is no evidence of significant pericardial effusion. Signed by : Rainer Britton, Electronically Approved : 06/14/2021 17:42:29
--- NOTE | 2021-06-14 19:50 | PDOC ---
PROGRESS NOTES Date of Service DATE: 06/14/21 TIME: 19:37 Assessment Problems Medical Problems: (1) Hypertension-the control of the blood pressure is much better. He has been off Cardene drip for several hours. Oral medications have been titrated. Status: Acute (2) Thalamic hemorrhage with stroke-I am relieved that the follow-up CT scan of the head did not reveal any increased size of the intracranial hemorrhage. Neurologically his only deficit is delay of initiation of left smile, ataxia of left arm and leg and weakness of left hip flexion. He is also unstable with gait but seems to do better if he is using a walker. His symptoms are no worse than yesterday. Status: Acute Plan He will continue to work with all of the therapies. Blood pressure management will be of paramount importance. We discussed the importance of controlling his diabetes. Last hemoglobin A1c was 8.3 on June 07, 2021. The whole goal is to reduce risk factors for future events. To this end he will need to exercise, carefully monitor his diet, lose weight, control his blood pressure and control cholesterol as well as triglycerides. At this time I recommend with holding the fish oil as it may potentially increase the risk of bleeding. The triglycerides would be better controlled by controlling the diabetes. He will likely be able to do outpatient rehabilitation as he appears safe to walk with a walker. His current statin is doing a good job as I the fasting lipid profile performed at the [facility] June 07, 2021. The LDL cholesterol was 62. He may be dismissed once the blood pressure is controlled with oral medications. Subjective I am feeling okay. I am not any worse. I do not have a headache and I am not in pain. The therapist that I could do outpatient rehabilitation. Objective Vital Signs Date Time Temp Pulse Resp B/P (MAP) Pulse Ox O2 Delivery O2 Flow Rate FiO2 06/14/21 19:00 76 20 137/58 97 Room Air 06/14/21 17:00 98.2 98.2 06/14/21 06:00 2.0 Intake and Output 06/14/21 07:00 Intake Total 200 ml Output Total 1250 ml Balance -1050 ml Intake Oral 200 ml Output Urine Total 1250 ml Carotid Doppler June 14, 2021 FINDINGS: There is atherosclerotic plaque involving the carotid bifurcations. The peak systolic velocity within the right common carotid artery is 136 cm/sec. The peak systolic velocity within the right internal carotid artery is 158 cm/sec and the end diastolic velocity within the right internal carotid artery is 19 cm/sec. The right ICA/CCA ratio is 1.3. The peak systolic velocity within the left common carotid artery is 143 cm/sec. The peak systolic velocity within the left internal carotid artery is 116 cm/sec and the end diastolic velocity within the left internal carotid artery is 17 cm/sec. The left ICA/CCA ratio is 0.81. There is normal antegrade flow within both vertebral arteries. There are elevated peak systolic velocities within the external carotid arteries, measuring 317 cm/s on the right and 393 cm/s on the left. IMPRESSION: 1. Doppler findings consistent with 50-69 percent stenosis involving the right ICA and less than 50 percent stenosis involving the left ICA. 2. Doppler findings consistent with hemodynamically significant stenosis involving the left greater than right external carotid arteries. CT head without contrast June 14, 2021 Comparison: CT head without contrast, yesterday Procedure: Multidetector CT imaging of the head was performed without the administration of contrast. Findings: Allowing for differences in slice selection/technique there is grossly unchanged appearance of small focus of hyperdensity in the right basal ganglia concerning for small acute parenchymal hemorrhage. No new mass effect or midline shift is seen. Ventricles and basilar cisterns have stable normal configuration. No new abnormal extra-axial fluid collections are identified. No acute osseous changes are seen. Impression: Grossly unchanged exam with small focus of hypodensity in the right basal ganglia felt to most likely represent a small intraparenchymal hemorrhage. CT follow-up to ensure resolution is recommended. If lesion fails to resolve, contrast-enhanced MRI recommended.. Laboratory was reviewed from [facility] from June 07, 2021. The patient brought in copies of the lab work. CBC revealed a normal white blood cell count, hemoglobin, hematocrit and platelet count. Chemistries were performed June 07, 2021. This revealed a sodium low at 135 and potassium elevated to 5.2. Chloride and CO2 were normal. BUN was elevated to 37 and creatinine was elevated to 1.98. GFR calculated at 33.5. Calcium, total protein and albumin were normal. Liver enzymes were not elevated. Uric acid was elevated to 8. Vitamin D level was low at 28.8 TSH was normal. Hemoglobin A1c was 8.3. Fasting lipid profile was obtained June 07, 2021. This revealed a total cholesterol 127, triglycerides elevated at 202, HDL was diminished at 25 and LDL was 62. PHYSICAL EXAM He was alert, awake and cooperative. Speech was fluent and clear. Attention and concentration was intact. He appeared well groomed and well nourished. Examination of the cranial nerves revealed visual noel were full to confrontation. Extraocular movements were intact. The eyes were conjugate. Pursuit movements were smooth and saccadic eye movements were without dysmetria. Pupils were 3 mm. Facial sensation was intact. Muscles of mastication were powerful symmetrically. He had delay of initiation of left smile. Hearing was intact to finger rub. The palate arched symmetrically and the tongue was midline with full motion. Muscle bulk and tone was normal. There was no drift. He did have rebound in the left arm and left leg. Power was full in the upper extremities bilaterally. He was weak with left hip flexion but otherwise was powerful in his left leg. Coordination testing with [id number], [id number], fine motor and rapid alternating movements was impaired on the left but normal on the right. Sensory exam was intact to light touch and sharp. He was able to transfer independently from his bed to a reclining chair by holding onto the furniture. He did have standby assistance. It was not an easy transfer for him. Review of Relevant I have reviewed the following items tarsha (where applicable) has been applied. Labs Laboratory Tests Test 06/13/21 13:00 06/13/21 20:47 06/14/21 08:02 06/14/21 11:09 White Blood Count 8.5 x10^3/uL (4.0-11.0) Red Blood Count 5.17 x10^6/uL (4.30-5.70) Hemoglobin 14.1 g/dL (13.0-17.5) Hematocrit 42.7 % (39.0-53.0) Mean Corpuscular Volume 83 fL (79-100) Mean Corpuscular Hemoglobin 27 pg (25-35) Mean Corpuscular Hemoglobin Concent 33 g/dL (31-37) Red Cell Distribution Width 15.6 % (11.5-14.5) Platelet Count 224 x10^3/uL (140-400) Neutrophils (%) (Auto) 73 % (31-73) Lymphocytes (%) (Auto) 17 % (24-48) Monocytes (%) (Auto) 9 % (0-9) Eosinophils (%) (Auto) 1 % (0-3) Basophils (%) (Auto) 1 % (0-3) Neutrophils # (Auto) 6.2 x10^3/uL (1.8-7.7) Lymphocytes # (Auto) 1.4 x10^3/uL (1.0-4.8) Monocytes # (Auto) 0.7 x10^3/uL (0.0-1.1) Eosinophils # (Auto) 0.1 x10^3/uL (0.0-0.7) Basophils # (Auto) 0.1 x10^3/uL (0.0-0.2) Prothrombin Time 12.1 SEC (11.7-14.0) Prothromb Time International Ratio 0.9 (0.8-1.1) Activated Partial Thromboplast Time 24 SEC (24-38) Sodium Level 138 mmol/L (136-145) Potassium Level 4.8 mmol/L (3.5-5.1) Chloride Level 102 mmol/L (98-107) Carbon Dioxide Level 26 mmol/L (21-32) Anion Gap 10 (6-14) Blood Urea Nitrogen 29 mg/dL (8-26) Creatinine 1.6 mg/dL (0.7-1.3) Estimated GFR (Cockcroft-Gault) 42.8 Glucose Level 172 mg/dL (70-99) Calcium Level 8.6 mg/dL (8.5-10.1) Troponin I High Sensitivity 31 ng/L (4-75) Glucose (Fingerstick) 171 mg/dL (70-99) 255 mg/dL (70-99) 291 mg/dL (70-99) Test 06/14/21 17:41 Glucose (Fingerstick) 213 mg/dL (70-99) Laboratory Tests Test 06/13/21 20:47 06/14/21 08:02 06/14/21 11:09 06/14/21 17:41 Glucose (Fingerstick) 171 mg/dL (70-99) 255 mg/dL (70-99) 291 mg/dL (70-99) 213 mg/dL (70-99) Medications Current Medications Nicardipine HCl 50 mg/Sodium Chloride 250 ml @ 25 mls/hr CONT PRN IV PER PROTOCOL Last administered on 06/13/21at 19:46; Start 06/13/21 at 12:45 Acetaminophen (Tylenol) 650 mg PRN Q6HRS PRN PO Headaches, Temp > 101.5' Last administered on 06/14/21at 18:05; Start 06/13/21 at 14:00 Lorazepam (Ativan) 1 mg PRN Q6HRS PRN PO ANXIETY / AGITATION; Start 06/13/21 at 14:00 Ondansetron HCl (Zofran) 4 mg PRN Q6HRS PRN IVP NAUSEA/VOMITING; Start 06/13/21 at 14:00 Calcium Carbonate/ Glycine (Tums) 500 mg PRN Q3HRS PRN PO HEARTBURN / GAS; Start 06/13/21 at 14:00 Info (Icu Electrolyte Protocol) 1 ea DAILY MC ; Start 06/14/21 at 09:00 Sodium Chloride (Normal Saline Flush) 3 ml QSHIFT PRN IV AFTER MEDS AND BLOOD DRAWS; Start 06/13/21 at 14:00 Oxycodone/ Acetaminophen (Percocet 5/325) 1 tab PRN Q4HRS PRN PO MILD PAIN, 1ST CHOICE; Start 06/13/21 at 14:00 Oxycodone/ Acetaminophen (Percocet 5/325) 2 tab PRN Q4HRS PRN PO MODERATE PAIN, SEVERE PAIN; Start 06/13/21 at 14:00 Senna/Docusate Sodium (Senna Plus) 1 tab BID PO Last administered on 06/14/21at 07:41; Start 06/13/21 at 21:00 Vitamin D (Vitamin D3) 1,000 unit DAILY PO Last administered on 06/14/21at 07:41; Start 06/13/21 at 17:00 Levothyroxine Sodium (Synthroid) 88 mcg DAILY06 PO Last administered on 06/14/21at 05:28; Start 06/13/21 at 17:00 Metoprolol Succinate (Toprol Xl) 12.5 mg DAILY PO Last administered on 06/14/21at 07:41; Start 06/13/21 at 17:00; Stop 06/14/21 at 11:43; Status DC Simvastatin (Zocor) 20 mg QHS PO Last administered on 06/13/21at 20:44; Start 06/13/21 at 21:00 Glycerin/ Hypromellose/ Polyethylene (Artificial Tears) 1 drop QID OU Last administered on 06/14/21at 17:44; Start 06/13/21 at 17:00 Cetirizine HCl (ZyrTEC) 10 mg HS PO Last administered on 06/13/21at 20:44; Start 06/13/21 at 21:00 Insulin Glargine (Lantus Syringe) 70 unit DAILY SQ Last administered on 06/14/21at 09:00; Start 06/14/21 at 09:00 Losartan Potassium (Cozaar) 100 mg DAILY PO Last administered on 06/14/21at 07:42; Start 06/13/21 at 17:00 Pantoprazole Sodium (Protonix) 40 mg DAILYAC PO Last administered on 06/14/21at 07:42; Start 06/13/21 at 17:30 Insulin Human Lispro (HumaLOG) 20 units TIDWMEALS SQ Last administered on 06/14/21at 17:43; Start 06/14/21 at 12:00 Insulin Human Lispro (HumaLOG) 0-7 UNITS TIDWMEALS SQ Last administered on 06/14/21at 17:44; Start 06/14/21 at 12:00 Dextrose (Dextrose 50%-Water Syringe) 12.5 gm PRN Q15MIN PRN IV SEE COMMENTS; Start 06/14/21 at 08:15 Dextrose (Iv Dextrose 5%) 250 ml PRN Q15MIN PRN IV SEE COMMENTS; Start 06/14/21 at 08:15 Clonidine HCl (Catapres Tts-1) 1 patch WEEKLY TD Last administered on 06/14/21at 10:34; Start 06/14/21 at 11:00 Hydralazine HCl (Apresoline) 25 mg TID PO Last administered on 06/14/21at 10:34; Start 06/14/21 at 11:00; Stop 06/14/21 at 11:43; Status DC Hydralazine HCl (Apresoline) 50 mg TID PO Last administered on 06/14/21at 13:52; Start 06/14/21 at 14:00; Stop 06/14/21 at 17:24; Status DC Labetalol HCl (Trandate) 100 mg BID PO Last administered on 06/14/21at 12:37; Start 06/14/21 at 12:00 Hydralazine HCl (Apresoline Inj) 10 mg PRN Q4HRS PRN IVP ELEVATED BP, SEE COMMENTS; Start 06/14/21 at 11:45 Alprazolam (Xanax) 0.5 mg PRN Q6HRS PRN PO ANXIETY / AGITATION Last administer ed on 06/14/21at 16:06; Start 06/14/21 at 16:00 Hydralazine HCl (Apresoline) 100 mg TID PO ; Start 06/14/21 at 21:00 Active Scripts Active Reported Simvastatin 20 Mg Tablet 1 Tab PO QHS Fish Oil 1,000 Mg Softgel (Mcloud-3/Dha/Epa/Fish Oil) 1 Each Capsule 1 Cap PO BID 30 Days Vitamin D3 (Vitamin D) 25 Mcg Tablet 50 Mcg PO DAILY 1,000 UNITS = 25 MCG Cetirizine Hcl 10 Mg Tab.chew 10 Mg PO HS Omeprazole 40 Mg Capsule.dr 1 Cap PO DAILY Metoprolol Succinate ( Xl ) (Metoprolol Succinate) 25 Mg Tab.er.24h 0.5 Tab PO DAILY Losartan Potassium 100 Mg Tablet 100 Mg PO DAILY Levothyroxine Sodium 88 Mcg Tablet 1 Tab PO DAILY Lantus Solostar (Insulin Glargine,Hum.rec.anlog) 100 Unit/1 Ml Insuln.pen 70 Unit SQ DAILY Humalog (Insulin Lispro) 100 Unit/1 Ml Vial 100 Unit SQ TID Hydrochlorothiazide Tablet (Hydrochlorothiazide) 12.5 Mg Tablet 12.5 Mg PO DAILY Refresh Optive Eye Drops (Carboxymethylcellulos/Glycerin) 15 Ml Drops 1 Drop EACHEYE QID Vitals/I & O Vital Sign - Last 24 Hours 06/13/21 06/13/21 06/13/21 06/13/21 20:00 20:00 21:00 22:00 Pulse 96 85 77 Resp 30 26 23 B/P (MAP) 163/56 140/80 105/50 Pulse Ox 95 95 95 O2 Delivery Nasal Cannula Nasal Cannula Nasal Cannula Nasal Cannula O2 Flow Rate 2.0 2.0 2.0 2.0 06/13/21 06/13/21 06/14/21 06/14/21 22:15 23:00 00:00 00:00 Pulse 72 74 76 Resp 25 30 27 B/P (MAP) 107/52 124/42 108/59 108/42 Pulse Ox 97 97 95 O2 Delivery Nasal Cannula Nasal Cannula Nasal Cannula O2 Flow Rate 2.0 2.0 2.0 06/14/21 06/14/21 06/14/21 06/14/21 01:00 02:00 03:00 04:00 Temp 98.4 98.4 Pulse 75 83 91 72 Resp 28 B/P (MAP) 144/61 148/81 137/51 145/57 Pulse Ox 97 95 95 96 O2 Delivery Nasal Cannula Nasal Cannula Nasal Cannula Nasal Cannula O2 Flow Rate 2.0 2.0 2.0 2.0 06/14/21 06/14/21 06/14/21 06/14/21 05:00 06:00 07:00 07:41 Pulse 71 74 57 78 Resp 15 B/P (MAP) 155/58 158/56 171/85 171/85 Pulse Ox 98 98 90 O2 Delivery Nasal Cannula Nasal Cannula Room Air O2 Flow Rate 2.0 2.0 06/14/21 06/14/21 06/14/21 06/14/21 07:42 08:00 08:00 09:00 Temp 98.5 98.5 Pulse 82 83 81 Resp 18 B/P (MAP) 171/85 196/83 174/100 Pulse Ox 94 96 O2 Delivery Room Air Room Air Room Air 06/14/21 06/14/21 06/14/21 06/14/21 10:00 10:34 11:00 12:00 Temp 98.6 98.6 Pulse 78 88 66 72 Resp 16 16 B/P (MAP) 182/72 176/85 194/77 184/66 Pulse Ox 95 96 95 O2 Delivery Room Air Room Air Room Air 06/14/21 06/14/21 06/14/21 06/14/21 12:37 13:00 13:52 14:00 Pulse 71 71 64 64 Resp 16 14 B/P (MAP) 180/87 145/66 125/55 125/55 Pulse Ox 96 97 O2 Delivery Room Air Room Air 06/14/21 06/14/21 06/14/21 06/14/21 15:00 16:00 17:00 18:00 Temp 98.2 98.2 98.2 98.2 Pulse 69 74 75 72 Resp 14 18 16 16 B/P (MAP) 180/87 158/72 151/73 128/55 Pulse Ox 97 97 97 97 O2 Delivery Room Air Room Air Room Air Room Air 06/14/21 19:00 Pulse 76 Resp 20 B/P (MAP) 137/58 Pulse Ox 97 O2 Delivery Room Air Intake and Output 06/13/21 06/13/21 06/14/21 15:00 23:00 07:00 Intake Total 100 ml 100 ml Output Total 400 ml 500 ml 350 ml Balance -400 ml -400 ml -250 ml Justicifation of Admission Dx: Justifications for Admission: Justification of Admission Dx: Yes Acute Hemorrhagic Stroke: Acute Hemorrhagic Stroke GABI CAMPBELL MD Jun 14, 2021 19:50
[2021-06-14] MEDS: CETIRIZINE HCL 10 MG TABLET. PO SCH (20:54)
[2021-06-14] MEDS: SIMVASTATIN 20 MG TABLET PO SCH (20:54)
--- NOTE | 2021-06-14 23:32 | NUR ---
note patient bp 88/40, and deeply asleep. i woke patient, he was a bit disoriented, cannot remember date of . NIH still 4. After completing NIH scale parminder is A&Ox4. neurologist called and informed. No new orders at this time
[2021-06-15] VITALS (16 sets, daily range): BP systolic 105–154; BP diastolic 46–71
[2021-06-15] MEDS: ACETAMINOPHEN 325 MG TABLET. PO PRN (03:35)
[2021-06-15] MEDS: LEVOTHYROXINE 88 MCG TABLET PO SCH (05:49)
[2021-06-15 07:41] LABS: CHOLESTEROL/HDL RATIO 3.7
[2021-06-15] MEDS: PANTOPRAZOLE 40 MG TABLET.DR. PO SCH (08:30)
[2021-06-15] MEDS: LABETALOL HCL 100 MG TABLET. PO SCH (08:44)
[2021-06-15] MEDS: LOSARTAN POTASSIUM 50 MG TABLET. PO SCH (08:45)
[2021-06-15] MEDS: CHOLECALCIFEROL (VITAMIN D3) 1,000 UNIT TABLET PO SCH (08:45)
[2021-06-15] MEDS: SENNOSIDES/DOCUSATE 8.6/50MG TABLET. PO SCH (08:45)
[2021-06-15] MEDS: INSULIN LISPRO 300 UNITS/3 ML VIAL. SQ SCH ×4 (08:46→12:38)
[2021-06-15] MEDS: ELECTROLYTE (ICU) PROTOCOL. MC SCH (08:47)
[2021-06-15] MEDS: POLYVINYL ALCOHOL 1.4% OPHTH SOLUTION 15ML BOTTLE. OU SCH ×2 (08:48→12:39)
--- NOTE | 2021-06-15 08:51 | PDOC ---
[employer] PROGRESS NOTE Date of Service DOS: DATE: 06/15/21 TIME: 08:50 Chief Complaint Chief Complaint Thalamic hemorrhagic stroke Hypertensive urgency Hyperlipidemia Diabetes History of Present Illness History of Present Illness 06/15/2021 Patient seen and examined in the ICU He was snoring up in the chair He was easy to awake Pleasant but weak Discussed with RN Chart review 06/14/2021 Patient still in ICU Visiting with his family Chart reviewed discussed with RN Vitals/I&O Vitals/I&O: Vital Signs Date Time Temp Pulse Resp B/P (MAP) Pulse Ox O2 Delivery O2 Flow Rate FiO2 06/15/21 08:45 76 135/61 06/15/21 06:00 26 99 Room Air 06/15/21 04:00 98.5 98.5 I & O 06/14/21 06/14/21 06/15/21 15:00 23:00 07:00 Intake Total 500 ml 900 ml Output Total 1001 ml 350 ml 300 ml Balance -501 ml 550 ml -300 ml Physical Exam General: Alert, No acute distress Heart: Regular rate Lungs: Clear Abdomen: Normal bowel sounds Extremities: No clubbing Skin: No rashes Labs Labs: Laboratory Tests Test 06/14/21 11:09 06/14/21 17:41 06/14/21 20:58 06/14/21 23:13 Glucose (Fingerstick) 291 mg/dL (70-99) 213 mg/dL (70-99) 129 mg/dL (70-99) 136 mg/dL (70-99) Test 06/15/21 07:05 06/15/21 08:27 Triglycerides Level 134 mg/dL (0-150) Cholesterol Level 119 mg/dL (0-200) LDL Cholesterol, Calculated 60 mg/dL (0-100) VLDL Cholesterol, Calculated 27 mg/dL (0-40) Non-HDL Cholesterol Calculated 87 mg/dL (0-129) HDL Cholesterol 32 mg/dL (40-60) Cholesterol/HDL Ratio 3.7 Glucose (Fingerstick) 228 mg/dL (70-99) Assessment and Plan Assessmemt and Plan Problems Medical Problems: (1) Hypertension Status: Acute (2) Thalamic hemorrhage with stroke Status: Acute Thalamic hemorrhagic stroke Hypertensive urgency Hyperlipidemia Diabetes Plan ICU monitoring Neurosurgery following and neurology Home meds Aggressive blood pressure control DVT prophylaxis Full code Trend labs PT OT Appreciate subspecialist input Comment Review of Relevant I have reviewed the following items tarsha (where applicable) has been applied. Medications: Current Medications Medications (Trade) Dose Ordered Sig/Yemi Route PRN Reason Start Time Stop Time Status Last Admin Dose Admin Insulin Glargine (Lantus Syringe) 70 unit DAILY SQ 06/14/21 09:00 06/14/21 09:00 Insulin Human Lispro (HumaLOG) 20 units TIDWMEALS SQ 06/14/21 12:00 06/15/21 08:46 Insulin Human Lispro (HumaLOG) 0-7 UNITS TIDWMEALS SQ 06/14/21 12:00 06/15/21 08:47 Clonidine HCl (Catapres Tts-1) 1 patch WEEKLY TD 06/14/21 11:00 06/14/21 10:34 Hydralazine HCl (Apresoline) 25 mg TID PO 06/14/21 11:00 06/14/21 11:43 DC 06/14/21 10:34 Hydralazine HCl (Apresoline) 50 mg TID PO 06/14/21 14:00 06/14/21 17:24 DC 06/14/21 13:52 Labetalol HCl (Trandate) 100 mg BID PO 06/14/21 12:00 06/15/21 08:44 Hydralazine HCl (Apresoline Inj) 10 mg PRN Q4HRS PRN IVP ELEVATED BP, SEE COMMENTS 06/14/21 11:45 06/15/21 04:35 Alprazolam (Xanax) 0.5 mg PRN Q6HRS PRN PO ANXIETY / AGITATION 06/14/21 16:00 06/14/21 20:54 Hydralazine HCl (Apresoline) 100 mg TID PO 06/14/21 21:00 06/15/21 08:43 Justifications for Admission Other Justification ALIZE HOOD III DO Jun 15, 2021 08:51
[2021-06-15] MEDS: INSULIN GLARGINE SYRINGE. SQ SCH (09:00)
--- NOTE | 2021-06-15 15:04 | PDOC ---
PROGRESS NOTES Date of Service DATE: 06/15/21 TIME: 15:03 Subjective Subjective resting in chair denies headache BP well controlled family at bedside Objective Objective Vital Signs Date Time Temp Pulse Resp B/P (MAP) Pulse Ox O2 Delivery O2 Flow Rate FiO2 06/15/21 14:15 65 134/78 06/15/21 13:00 22 96 Room Air 06/15/21 12:00 97.9 97.9 06/14/21 06:00 2.0 Intake and Output 06/15/21 07:00 Intake Total 1400 ml Output Total 1651 ml Balance -251 ml Intake Oral 1400 ml Output Urine Total 1650 ml Stool Total 1 ml # Voids 1 Physical Exam General: Alert, Oriented X3, Cooperative, No acute distress MUSCULOSKELETAL: 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 Labs Laboratory Tests Test 06/13/21 20:47 06/14/21 08:02 06/14/21 11:09 06/14/21 17:41 Glucose (Fingerstick) 171 mg/dL (70-99) 255 mg/dL (70-99) 291 mg/dL (70-99) 213 mg/dL (70-99) Test 06/14/21 20:58 06/14/21 23:13 06/15/21 07:05 06/15/21 08:27 Glucose (Fingerstick) 129 mg/dL (70-99) 136 mg/dL (70-99) 228 mg/dL (70-99) Triglycerides Level 134 mg/dL (0-150) Cholesterol Level 119 mg/dL (0-200) LDL Cholesterol, Calculated 60 mg/dL (0-100) VLDL Cholesterol, Calculated 27 mg/dL (0-40) Non-HDL Cholesterol Calculated 87 mg/dL (0-129) HDL Cholesterol 32 mg/dL (40-60) Cholesterol/HDL Ratio 3.7 Test 06/15/21 12:00 Glucose (Fingerstick) 212 mg/dL (70-99) Laboratory Tests Test 06/14/21 17:41 06/14/21 20:58 06/14/21 23:13 06/15/21 07:05 Glucose (Fingerstick) 213 mg/dL (70-99) 129 mg/dL (70-99) 136 mg/dL (70-99) Triglycerides Level 134 mg/dL (0-150) Cholesterol Level 119 mg/dL (0-200) LDL Cholesterol, Calculated 60 mg/dL (0-100) VLDL Cholesterol, Calculated 27 mg/dL (0-40) Non-HDL Cholesterol Calculated 87 mg/dL (0-129) HDL Cholesterol 32 mg/dL (40-60) Cholesterol/HDL Ratio 3.7 Test 06/15/21 08:27 06/15/21 12:00 Glucose (Fingerstick) 228 mg/dL (70-99) 212 mg/dL (70-99) Medications Current Medications Nicardipine HCl 50 mg/Sodium Chloride 250 ml @ 25 mls/hr CONT PRN IV PER PROTOCOL Last administered on 06/13/21at 19:46; Start 06/13/21 at 12:45 Acetaminophen (Tylenol) 650 mg PRN Q6HRS PRN PO Headaches, Temp > 101.5' Last administered on 06/15/21at 03:35; Start 06/13/21 at 14:00 Lorazepam (Ativan) 1 mg PRN Q6HRS PRN PO ANXIETY / AGITATION; Start 06/13/21 at 14:00; Stop 06/15/21 at 12:21; Status DC Ondansetron HCl (Zofran) 4 mg PRN Q6HRS PRN IVP NAUSEA/VOMITING; Start 06/13/21 at 14:00 Calcium Carbonate/ Glycine (Tums) 500 mg PRN Q3HRS PRN PO HEARTBURN / GAS; Start 06/13/21 at 14:00 Info (Icu Electrolyte Protocol) 1 ea DAILY MC ; Start 06/14/21 at 09:00 Sodium Chloride (Normal Saline Flush) 3 ml QSHIFT PRN IV AFTER MEDS AND BLOOD DRAWS; Start 06/13/21 at 14:00 Oxycodone/ Acetaminophen (Percocet 5/325) 1 tab PRN Q4HRS PRN PO MILD PAIN, 1ST CHOICE; Start 06/13/21 at 14:00 Oxycodone/ Acetaminophen (Percocet 5/325) 2 tab PRN Q4HRS PRN PO MODERATE PAIN, SEVERE PAIN; Start 06/13/21 at 14:00 Senna/Docusate Sodium (Senna Plus) 1 tab BID PO Last administered on 06/15/21 08:45; Start 06/13/21 at 21:00 Vitamin D (Vitamin D3) 1,000 unit DAILY PO Last administered on 06/15/21 08:45; Start 06/13/21 at 17:00 Levothyroxine Sodium (Synthroid) 88 mcg DAILY06 PO Last administered on 06/15/21at 05:49; Start 06/13/21 at 17:00 Metoprolol Succinate (Toprol Xl) 12.5 mg DAILY PO Last administered on 2at 07:41; Start 06/13/21 at 17:00; Stop 06/14/21 at 11:43; Status DC Simvastatin (Zocor) 20 mg QHS PO Last administered on 06/14/21at 20:54; Start 06/13/21 at 21:00 Glycerin/ Hypromellose/ Polyethylene (Artificial Tears) 1 drop QID OU Last administered on 06/14/21 20:55; Start 06/13/21 at 17:00 Cetirizine HCl (ZyrTEC) 10 mg HS PO Last administered on 06/14/21at 20:54; Start 06/13/21 at 21:00 Insulin Glargine (Lantus Syringe) 70 unit DAILY SQ Last administered on 06/15/21at 09:00; Start 06/14/21 at 09:00 Losartan Potassium (Cozaar) 100 mg DAILY PO Last administered on 06/15/21at 08:45; Start 06/13/21 at 17:00 Pantoprazole Sodium (Protonix) 40 mg DAILYAC PO Last administered on 06/15/21 08:30; Start 06/13/21 at 17:30 Insulin Human Lispro (HumaLOG) 20 units TIDWMEALS SQ Last administered on 06/15/21 12:37; Start 06/14/21 at 12:00 Insulin Human Lispro (HumaLOG) 0-7 UNITS TIDWMEALS SQ Last administered on 06/15/21at 12:38; Start 06/14/21 at 12:00 Dextrose (Dextrose 50%-Water Syringe) 12.5 gm PRN Q15MIN PRN IV SEE COMMENTS; Start 06/14/21 at 08:15 Dextrose (Iv Dextrose 5%) 250 ml PRN Q15MIN PRN IV SEE COMMENTS; Start 06/14/21 at 08:15 Clonidine HCl (Catapres Tts-1) 1 patch WEEKLY TD Last administered on 06/14/21at 10:34; Start 06/14/21 at 11:00 Hydralazine HCl (Apresoline) 25 mg TID PO Last administered on 06/14/21at 10:34; Start 06/14/21 at 11:00; Stop 06/14/21 at 11:43; Status DC Hydralazine HCl (Apresoline) 50 mg TID PO Last administered on 06/14/21at 13:52; Start 06/14/21 at 14:00; Stop 06/14/21 at 17:24; Status DC Labetalol HCl (Trandate) 100 mg BID PO Last administered on 06/15/21at 08:44; Start 06/14/21 at 12:00 Hydralazine HCl (Apresoline Inj) 10 mg PRN Q4HRS PRN IVP ELEVATED BP, SEE COMMENTS Last administered on 06/15/21at 04:35; Start 06/14/21 at 11:45 Alprazolam (Xanax) 0.5 mg PRN Q6HRS PRN PO ANXIETY / AGITATION Last administered on 06/14/21at 20:54; Start 06/14/21 at 16:00 Hydralazine HCl (Apresoline) 100 mg TID PO Last administered on 06/15/21at 14:15; Start 06/14/21 at 21:00 Active Scripts Active Reported Simvastatin 20 Mg Tablet 1 Tab PO QHS Fish Oil 1,000 Mg Softgel ([place]-3/Dha/Epa/Fish Oil) 1 Each Capsule 1 Cap PO BID 30 Days Vitamin D3 (Vitamin D) 25 Mcg Tablet 50 Mcg PO DAILY 1,000 UNITS = 25 MCG Cetirizine Hcl 10 Mg Tab.chew 10 Mg PO HS Omeprazole 40 Mg Capsule.dr 1 Cap PO DAILY Losartan Potassium 100 Mg Tablet 100 Mg PO DAILY Levothyroxine Sodium 88 Mcg Tablet 1 Tab PO DAILY Lantus Solostar (Insulin Glargine,Hum.rec.anlog) 100 Unit/1 Ml Insuln.pen 70 Unit SQ DAILY Humalog (Insulin Lispro) 100 Unit/1 Ml Vial 100 Unit SQ TID Refresh Optive Eye Drops (Carboxymethylcellulos/Glycerin) 15 Ml Drops 1 Drop EACHEYE QID Vitals/I & O Vital Sign - Last 24 Hours 06/14/21 06/14/21 06/14/21 06/14/21 16:00 17:00 18:00 19:00 Temp 98.2 98.2 98.2 98.2 Pulse 74 75 72 76 Resp 18 16 16 20 B/P (MAP) 158/72 151/73 128/55 137/58 Pulse Ox 97 97 97 97 O2 Delivery Room Air Room Air Room Air Room Air 06/14/21 06/14/21 06/14/21 06/14/21 20:00 20:00 20:55 20:55 Pulse 62 62 62 Resp 20 B/P (MAP) 115/42 115/42 115/42 Pulse Ox 98 O2 Delivery Room Air Room Air 06/14/21 06/14/21 06/14/21 06/15/21 21:00 22:00 23:00 00:00 Temp 98.4 98.4 98.4 98.4 Pulse 74 55 55 69 Resp 18 20 20 33 B/P (MAP) 139/42 133/62 143/70 129/59 Pulse Ox 98 98 97 97 O2 Delivery Room Air Room Air Room Air Room Air 06/15/21 06/15/21 06/15/21 06/15/21 01:00 02:00 03:00 04:00 Temp 98.5 98.5 Pulse 73 83 83 65 Resp 18 18 22 B/P (MAP) 144/54 118/46 125/55 142/71 Pulse Ox 97 98 98 98 O2 Delivery Room Air Room Air Room Air Room Air 06/15/21 06/15/21 06/15/21 06/15/21 04:35 05:00 06:00 07:00 Pulse 65 65 63 70 Resp 18 26 20 B/P (MAP) 170/71 105/47 152/64 119/56 Pulse Ox 98 99 97 O2 Delivery Room Air Room Air Room Air 06/15/21 06/15/21 06/15/21 06/15/21 08:00 08:00 08:43 08:44 Temp 98.7 98.7 Pulse 56 70 68 Resp 20 B/P (MAP) 135/56 135/61 135/61 Pulse Ox 98 O2 Delivery Room Air Room Air 06/15/21 06/15/21 06/15/21 06/15/21 08:45 09:00 10:00 11:00 Pulse 76 72 59 63 Resp 18 18 26 B/P (MAP) 135/61 154/63 136/65 149/55 Pulse Ox 98 98 98 O2 Delivery Room Air Room Air Room Air 06/15/21 06/15/21 06/15/21 12:00 13:00 14:15 Temp 97.9 97.9 Pulse 67 64 65 Resp 24 22 B/P (MAP) 140/55 131/71 134/78 Pulse Ox 95 96 O2 Delivery Room Air Room Air Intake and Output 06/14/21 06/14/21 06/15/21 15:00 23:00 07:00 Intake Total 500 ml 900 ml Output Total 1001 ml 350 ml 300 ml Balance -501 ml 550 ml -300 ml Justifications for Admission Other Justification DELIO ESPARZA APRN Jun 15, 2021 15:04
--- NOTE | 2021-06-15 15:15 | NUR ---
SS following up with discharge planning. SS reviewed pt chart and discussed with pt RN. Pt is currently on room air. Discharge order on the chart for home. Scripts received for walker, shower chair, and outpatient PT/OT. Pt reported he receives services through the [facility]. PCP, Dr. Burgos, , ext. [phone]; fax [phone]. [facility] contacted floor and spoke with TERRA[employer]O TILE SETTERSalvador. Scripts and clinical phoned and faxed as requested with attention to Team 8, Dominique. SS will continue to follow for discharge planning.
--- NOTE | 2021-06-15 15:24 | PDOC ---
PROGRESS NOTES Date of Service DATE: 06/15/21 TIME: 15:18 Assessment Problems Medical Problems: (1) Hypertension-The blood pressure has come under much better control. Last antoinette quyen the blood pressure became too low and the patient was confused when he first woke up. After the blood pressure had normalized he was back to baseline. Status: Acute (2) Thalamic hemorrhage with stroke-a small hemorrhage in this region is far less likely to be an embolic phenomena. I do not feel that we need a transesophageal echocardiogram. The transthoracic echocardiogram study was adequate for our purposes. His risk factor includes uncontrolled hypertension, uncontrolled diabetes and obesity. Status: Acute Plan He may be dismissed from a neurologic perspective. We discussed the importance of measuring his blood pressure several times throughout the day over the next several days to make sure it is remaining stable and not becoming too high or low. If he starts to become dizzy he should lie flat and measure his blood pressure. He may resume his aspirin 81 mg on June 26 or which will be about 14 days after the hemorrhage. I do not recommend he resume the fish oil. He will need to work on tight diabetic control. He will need to work on gradually increasing his activity with walking, healthy diet and weight loss. He should continue with his statin as his lipid profile was favorable. He will have a follow-up CT scan per neurosurgery. He can follow-up with neurology in 1-2 months. I appreciate being involved in his care. Objective Vital Signs Date Time Temp Pulse Resp B/P (MAP) Pulse Ox O2 Delivery O2 Flow Rate FiO2 06/15/21 14:15 65 134/78 06/15/21 13:00 22 96 Room Air 06/15/21 12:00 97.9 97.9 Intake and Output 06/15/21 07:00 Intake Total 1400 ml Output Total 1651 ml Balance -251 ml Intake Oral 1400 ml Output Urine Total 1650 ml Stool Total 1 ml # Voids 1 Carotid Doppler June 14, 2021 FINDINGS: There is atherosclerotic plaque involving the carotid bifurcations. The peak systolic velocity within the right common carotid artery is 136 cm/sec. The peak systolic velocity within the right internal carotid artery is 158 cm/sec and the end diastolic velocity within the right internal carotid artery is 19 cm/sec. The right ICA/CCA ratio is 1.3. The peak systolic velocity within the left common carotid artery is 143 cm/sec. The peak systolic velocity within the left internal carotid artery is 116 cm/sec and the end diastolic velocity within the left internal carotid artery is 17 cm/sec. The left ICA/CCA ratio is 0.81. There is normal antegrade flow within both vertebral arteries. There are elevated peak systolic velocities within the external carotid arteries, measuring 317 cm/s on the right and 393 cm/s on the left. IMPRESSION: 1. Doppler findings consistent with 50-69 percent stenosis involving the right ICA and less than 50 percent stenosis involving the left ICA. 2. Doppler findings consistent with hemodynamically significant stenosis involving the left greater than right external carotid arteries. CT head without contrast June 14, 2021 Comparison: CT head without contrast, yesterday Procedure: Multidetector CT imaging of the head was performed without the administration of contrast. Findings: Allowing for differences in slice selection/technique there is grossly unchanged appearance of small focus of hyperdensity in the right basal ganglia concerning for small acute parenchymal hemorrhage. No new mass effect or midline shift is seen. Ventricles and basilar cisterns have stable normal configuration. No new abnormal extra-axial fluid collections are identified. No acute osseous changes are seen. Impression: Grossly unchanged exam with small focus of hypodensity in the right basal ganglia felt to most likely represent a small intraparenchymal hemorrhage. CT follow-up to ensure resolution is recommended. If lesion fails to resolve, contrast-enhanced MRI recommended.. Transthoracic echocardiogram June 14, 2021 <Conclusion> Technically very difficult study. The left ventricular systolic function is normal. The ejection fraction is estimated at 55-60%. There is normal LV segmental wall motion. Transmitral Doppler flow pattern is Grade I-abnormal relaxation pattern. Trace tricuspid regurgitation. The PA pressure was estimated at 37 mmHg. There is no evidence of significant pericardial effusion. Bubble study very technically difficult but appears to be negative. Recommend MARY if clinical suspicion is high. PHYSICAL EXAM He was alert, awake and cooperative. Speech was fluent and clear. He to good fund of recent and remote knowledge. Attention and concentration was intact. He appeared well groomed and well nourished. He was fully oriented. Examination of the cranial nerves revealed visual noel were full to confrontation. Extraocular movements were intact. The eyes were conjugate. Pursuit movements were smooth and saccadic eye movements were without dysmetria. Facial sensation was intact. Muscles of mastication were powerful symmetrically. There was much less delay of initiation of left smile. Hearing was intact to finger rub. The palate arched symmetrically and the tongue was midline with full motion. Sternocleidomastoid and trapezius were powerful. Muscle bulk and tone was normal. There was much less left arm drift. There was still some rebound in the left arm and leg. Power was full in the upper extremities. He continues to have some weakness with left hip flexion but the remainder of the strength was fairly full. Coordination with [id number] was intact on the right with some ataxia on the left. Sensation was intact to light touch. He walked with physical therapy and was stable with a walker. Review of Relevant I have reviewed the following items tarsha (where applicable) has been applied. Labs Laboratory Tests Test 06/13/21 20:47 06/14/21 08:02 06/14/21 11:09 06/14/21 17:41 Glucose (Fingerstick) 171 mg/dL (70-99) 255 mg/dL (70-99) 291 mg/dL (70-99) 213 mg/dL (70-99) Test 06/14/21 20:58 06/14/21 23:13 06/15/21 07:05 06/15/21 08:27 Glucose (Fingerstick) 129 mg/dL (70-99) 136 mg/dL (70-99) 228 mg/dL (70-99) Triglycerides Level 134 mg/dL (0-150) Cholesterol Level 119 mg/dL (0-200) LDL Cholesterol, Calculated 60 mg/dL (0-100) VLDL Cholesterol, Calculated 27 mg/dL (0-40) Non-HDL Cholesterol Calculated 87 mg/dL (0-129) HDL Cholesterol 32 mg/dL (40-60) Cholesterol/HDL Ratio 3.7 Test 06/15/21 12:00 Glucose (Fingerstick) 212 mg/dL (70-99) Laboratory Tests Test 06/14/21 17:41 06/14/21 20:58 06/14/21 23:13 06/15/21 07:05 Glucose (Fingerstick) 213 mg/dL (70-99) 129 mg/dL (70-99) 136 mg/dL (70-99) Triglycerides Level 134 mg/dL (0-150) Cholesterol Level 119 mg/dL (0-200) LDL Cholesterol, Calculated 60 mg/dL (0-100) VLDL Cholesterol, Calculated 27 mg/dL (0-40) Non-HDL Cholesterol Calculated 87 mg/dL (0-129) HDL Cholesterol 32 mg/dL (40-60) Cholesterol/HDL Ratio 3.7 Test 06/15/21 08:27 06/15/21 12:00 Glucose (Fingerstick) 228 mg/dL (70-99) 212 mg/dL (70-99) Medications Current Medications Nicardipine HCl 50 mg/Sodium Chloride 250 ml @ 25 mls/hr CONT PRN IV PER PROTOCOL Last administered on 06/13/21at 19:46; Start 06/13/21 at 12:45 Acetaminophen (Tylenol) 650 mg PRN Q6HRS PRN PO Headaches, Temp > 101.5' Last administered on 06/15/21at 03:35; Start 06/13/21 at 14:00 Lorazepam (Ativan) 1 mg PRN Q6HRS PRN PO ANXIETY / AGITATION; Start 06/13/21 at 14:00; Stop 06/15/21 at 12:21; Status DC Ondansetron HCl (Zofran) 4 mg PRN Q6HRS PRN IVP NAUSEA/VOMITING; Start 06/13/21 at 14:00 Calcium Carbonate/ Glycine (Tums) 500 mg PRN Q3HRS PRN PO HEARTBURN / GAS; Start 06/13/21 at 14:00 Info (Icu Electrolyte Protocol) 1 ea DAILY MC ; Start 06/14/21 at 09:00 Sodium Chloride (Normal Saline Flush) 3 ml QSHIFT PRN IV AFTER MEDS AND BLOOD DRAWS; Start 06/13/21 at 14:00 Oxycodone/ Acetaminophen (Percocet 5/325) 1 tab PRN Q4HRS PRN PO MILD PAIN, 1ST CHOICE; Start 06/13/21 at 14:00 Oxycodone/ Acetaminophen (Percocet 5/325) 2 tab PRN Q4HRS PRN PO MODERATE PAIN, SEVERE PAIN; Start 06/13/21 at 14:00 Senna/Docusate Sodium (Senna Plus) 1 tab BID PO Last administered on 06/15/21at 08:45; Start 06/13/21 at 21:00 Vitamin D (Vitamin D3) 1,000 unit DAILY PO Last administered on 06/15/21at 08:45; Start 06/13/21 at 17:00 Levothyroxine Sodium (Synthroid) 88 mcg DAILY06 PO Last administered on 06/15/21at 05:49; Start 06/13/21 at 17:00 Metoprolol Succinate (Toprol Xl) 12.5 mg DAILY PO Last administered on 06/14/21at 07:41; Start 06/13/21 at 17:00; Stop 06/14/21 at 11:43; Status DC Simvastatin (Zocor) 20 mg QHS PO Last administered on 06/14/21at 20:54; Start at 21:00 Glycerin/ Hypromellose/ Polyethylene (Artificial Tears) 1 drop QID OU Last administered on 06/14/21at 20:55; Start 06/13/21 at 17:00 Cetirizine HCl (ZyrTEC) 10 mg HS PO Last administered on 06/14/21at 20:54; Start 06/13/21 at 21:00 Insulin Glargine (Lantus Syringe) 70 unit DAILY SQ Last administered on 06/15/21at 09:00; Start 06/14/21 at 09:00 Losartan Potassium (Cozaar) 100 mg DAILY PO Last administered on 06/15/21at 08:45; Start 06/13/21 at 17:00 Pantoprazole Sodium (Protonix) 40 mg DAILYAC PO Last administered on 06/15/21at 08:30; Start 06/13/21 at 17:30 Insulin Human Lispro (HumaLOG) 20 units TIDWMEALS SQ Last administered on 06/15/21at 12:37; Start 06/14/21 at 12:00 Insulin Human Lispro (HumaLOG) 0-7 UNITS TIDWMEALS SQ Last administered on 06/15/21at 12:38; Start 06/14/21 at 12:00 Dextrose (Dextrose 50%-Water Syringe) 12.5 gm PRN Q15MIN PRN IV SEE COMMENTS; Start 06/14/21 at 08:15 Dextrose (Iv Dextrose 5%) 250 ml PRN Q15MIN PRN IV SEE COMMENTS; Start 06/14/21 at 08:15 Clonidine HCl (Catapres Tts-1) 1 patch WEEKLY TD Last administered on 06/14/21at 10:34; Start 06/14/21 at 11:00 Hydralazine HCl (Apresoline) 25 mg TID PO Last administered on 06/14/21at 10:34; Start 06/14/21 at 11:00; Stop 06/14/21 at 11:43; Status DC Hydralazine HCl (Apresoline) 50 mg TID PO Last administered on 06/14/21at 13:52; Start 06/14/21 at 14:00; Stop 06/14/21 at 17:24; Status DC Labetalol HCl (Trandate) 100 mg BID PO Last administered on 06/15/21at 08:44; Start 06/14/21 at 12:00 Hydralazine HCl (Apresoline Inj) 10 mg PRN Q4HRS PRN IVP ELEVATED BP, SEE COMMENTS Last administered on 06/15/21at 04:35; Start 06/14/21 at 11:45 Alprazolam (Xanax) 0.5 mg PRN Q6HRS PRN PO ANXIETY / AGITATION Last administered on 06/14/21at 20:54; Start 06/14/21 at 16:00 Hydralazine HCl (Apresoline) 100 mg TID PO Last administered on 06/15/21at 14:15; Start 06/14/21 at 21:00 Active Scripts Active Reported Simvastatin 20 Mg Tablet 1 Tab PO QHS Fish Oil 1,000 Mg Softgel ([place]-3/Dha/Epa/Fish Oil) 1 Each Capsule 1 Cap PO BID 30 Days Vitamin D3 (Vitamin D) 25 Mcg Tablet 50 Mcg PO DAILY 1,000 UNITS = 25 MCG Cetirizine Hcl 10 Mg Tab.chew 10 Mg PO HS Omeprazole 40 Mg Capsule.dr 1 Cap PO DAILY Losartan Potassium 100 Mg Tablet 100 Mg PO DAILY Levothyroxine Sodium 88 Mcg Tablet 1 Tab PO DAILY Lantus Solostar (Insulin Glargine,Hum.rec.anlog) 100 Unit/1 Ml Insuln.pen 70 Unit SQ DAILY Humalog (Insulin Lispro) 100 Unit/1 Ml Vial 100 Unit SQ TID Refresh Optive Eye Drops (Carboxymethylcellulos/Glycerin) 15 Ml Drops 1 Drop EACHEYE QID Vitals/I & O Vital Sign - Last 24 Hours 06/14/21 06/14/21 06/14/21 06/14/21 16:00 17:00 18:00 19:00 Temp 98.2 98.2 98.2 98.2 Pulse 74 75 72 76 Resp 18 16 16 20 B/P (MAP) 158/72 151/73 128/55 137/58 Pulse Ox 97 97 97 97 O2 Delivery Room Air Room Air Room Air Room Air 06/14/21 06/14/21 06/14/21 06/14/21 20:00 20:00 20:55 20:55 Pulse 62 62 62 Resp 20 B/P (MAP) 115/42 115/42 115/42 Pulse Ox 98 O2 Delivery Room Air Room Air 06/14/21 06/14/21 06/14/21 06/15/21 21:00 22:00 23:00 00:00 Temp 98.4 98.4 98.4 98.4 Pulse 74 55 55 69 Resp 18 20 20 33 B/P (MAP) 139/42 133/62 143/70 129/59 Pulse Ox 98 98 97 97 O2 Delivery Room Air Room Air Room Air Room Air 06/15/21 06/15/21 06/15/21 06/15/21 01:00 02:00 03:00 04:00 Temp 98.5 98.5 Pulse 73 83 83 65 Resp 22 B/P (MAP) 144/54 118/46 125/55 142/71 Pulse Ox 97 98 98 98 O2 Delivery Room Air Room Air Room Air Room Air 06/15/21 06/15/21 06/15/21 06/15/21 04:35 05:00 06:00 07:00 Pulse 65 65 63 70 Resp 18 26 20 B/P (MAP) 170/71 105/47 152/64 119/56 Pulse Ox 98 99 97 O2 Delivery Room Air Room Air Room Air 06/15/21 06/15/21 06/15/21 06/15/21 08:00 08:00 08:43 08:44 Temp 98.7 98.7 Pulse 56 70 68 Resp 20 B/P (MAP) 135/56 135/61 135/61 Pulse Ox 98 O2 Delivery Room Air Room Air 06/15/21 06/15/21 06/15/21 06/15/21 08:45 09:00 10:00 11:00 Pulse 76 72 59 63 Resp 18 18 26 B/P (MAP) 135/61 154/63 136/65 149/55 Pulse Ox 98 98 98 O2 Delivery Room Air Room Air Room Air 06/15/21 06/15/21 06/15/21 12:00 13:00 14:15 Temp 97.9 97.9 Pulse 67 64 65 Resp 24 22 B/P (MAP) 140/55 131/71 134/78 Pulse Ox 95 96 O2 Delivery Room Air Room Air Intake and Output 06/14/21 06/14/21 06/15/21 15:00 23:00 07:00 Intake Total 500 ml 900 ml Output Total 1001 ml 350 ml 300 ml Balance -501 ml 550 ml -300 ml Justicifation of Admission Dx: Justifications for Admission: Justification of Admission Dx: Yes Acute Hemorrhagic Stroke: Acute Hemorrhagic Stroke GABI CAMPBELL MD Jun 15, 2021 15:24
--- NOTE | 2021-06-15 15:50 | NUR ---
Discharge Note: [facility] Discharge instructions and discharge home medications reviewed with Patient and a copy given. All questions have been answered and understanding verbalized. The following instructions and handouts were given: F/U orders, Med rec, New scripts, PT/OT orders. Discontinued lines and drains: 20g RAC, clean,dry and intact. Patient discharged to Home with self care via family
== END 2021-06-15 15:55 | disposition home or self-care (01) | DRG 66 ==
LOC: ER 12:35 → 1 WEST ICU 13:18
PROVIDERS: ADMIT Student in an Organized Health Care Education/Training Program; ATTEND Student in an Organized Health Care Education/Training Program
DX: I61.8 Other nontraumatic intracerebral hemorrhage (principal); I16.0 Hypertensive urgency; E11.65 Type 2 diabetes mellitus with hyperglycemia; E66.9 Obesity, unspecified; E78.1 Pure hyperglyceridemia; E78.5 Hyperlipidemia, unspecified; E87.5 Hyperkalemia; I10 Essential (primary) hypertension; R29.810 Facial weakness; Z79.4 Long term (current) use of insulin; Z82.49 Family history of ischemic heart disease and other diseases of the circulatory system; Z68.39 Body mass index [BMI] 39.0-39.9, adult; Z88.8 Allergy status to other drugs, medicaments and biological substances
CPT/HCPCS: 36415; 70450; 80048; 80061; 82962; 84484; 85025; 85610; 85730; 93005; 93306; 93880; J0360; J1815; J3490; J7050; 92610-GN; 97116-GP; 99285-25; C8929; G0378; J7030